=== PATIENT | female | born 2000 | race Caucasian/White ===

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

== ENCOUNTER 2020-01-09 16:18 | Emergency (ER) | payer OTHER ==
[2020-01-09 16:47] VITALS: BP 127/82; PULSE 107; RESP 18; TEMP 98.3
[2020-01-09 17:45] LABS: Basophils % (A) 1 %; Eosinophils # (A) 0.1 k/uL (0-0.7); Eosinophils % (A) 2 %; HCT 41.6 % (34.0-46.0); HGB 13.7 gm/dL (11.4-16.0); Lymphocytes # (A) 1.1 k/uL (1.0-4.8); Lymphocytes % (A) 16 %; MCH 29.8 pg (25.0-35.0); MCV 90.3 fL (80.0-100.0); Mean Platelet Volume 8.6; Monocytes # (A) 0.3 k/uL (0-1.0); Monocytes % (A) 4 %; Neutrophils # (A) 5.2 k/uL (1.3-7.7); Neutrophils % (A) 76 %; Platelet Count 198 k/uL (150-450); RBC 4.61 m/uL (3.80-5.40); RDW 12.5 % (11.5-15.5); WBC 6.8 k/uL (4.0-11.0)
[2020-01-09 17:53] LABS: Amorphous Sediment,Urine Rare /hpf; Appearance,Urine Clear (Clear); Bacteria,Urine Occasional /hpf; Bilirubin,Urine Negative (Negative); Blood,Urine Moderate (Negative); Color,Urine Light Yellow; Glucose,Urine (UA) Negative (Negative); Ketones,Urine Negative (Negative); Leukocyte Esterase,Urine Negative (Negative); Mucus,Urine Occasional /hpf; Nitrite,Urine Negative (Negative); PH, Urine 6.5 (5.0-8.0); Protein,Urine Negative (Negative); RBC,Urine 6 /hpf (0-5); Specific Gravity,Urine 1.008 (1.001-1.035); Squamous Epithelial Cell,Urine 1 /hpf (0-4); Urobilinogen,Urine <2.0 mg/dL (<2.0); WBC,Urine 1 /hpf (0-5)
[2020-01-09 17:56] LABS: African American GFR (CKD) >90 (>60 ml/min/1.73 sqM); Anion Gap 8 mmol/L; Blood Urea Nitrogen 11 mg/dL (7-17); Calcium 9.5 mg/dL (8.4-10.2); Carbon Dioxide 25 mmol/L (22-30); Chloride 105 mmol/L (98-107); Glucose 123 mg/dL (74-99); Non-African American GFR(CKD) >90 (>60 ml/min/1.73 sqM); Potassium 3.7 mmol/L (3.5-5.1); Sodium 138 mmol/L (137-145)
[2020-01-09 18:13] LABS: HCG,Quantitative Serum 333.6 mIU/mL
--- NOTE | 2020-01-09 18:36 | US ---
EXAMINATION TYPE: Transabdominal DATE OF EXAM: 01/09/2020 6:12 PM COMPARISON: NONE CLINICAL HISTORY: Vaginal bleeding and . EXAM PERFORMED: Transvaginal (TV) and Transabdominal (TA) EXAM MEASUREMENTS: GESTATIONAL AGE / DATING Dates by LMP: (5 weeks/3 days) EDC: 09/07/2020 Dates by Current Scan for: No IUP seen at this time MATERNAL ANATOMY Uterus: 7.8 x 3.7 x 4.1 cm Right Ovary: 2.0 x 1.9 x 1.7 cm Left Ovary: 3.1 x 1.7 x 1.5 cm Presence of free fluid: Small amount of free fluid visualized in the cul de sac Presence of corpus luteal cyst: Yes, left ovary measuring 1.6 x 1.0 x 0.9 cm GESTATION / SURVEY IUP: No IUP seen at this time Date of LMP: 12/02/2019 Beta HcG (if available): 333 No IUP visualized at this time. IMPRESSION: Uterus is empty. No evidence of a gestational sac. No sign of ectopic .
--- NOTE | 2020-01-09 18:55 | ED ---
Female Urogenital HPI - General Chief complaint: Vaginal Bleeding Stated complaint: possible miscarriage Time Seen by Provider: 01/09/20 17:10 Source: patient, RN notes reviewed Mode of arrival: ambulatory Limitations: no limitations - History of Present Illness Initial comments: This a 19-year-old female presents emergency Department chief complaint of vaginal bleeding early . Patient is A0 proximal to 8 weeks . Patient states that she is trying to establish with [employer]. Patient denies any fevers or chills she has mild abdominal cramping. Patient denies any constipation or diarrhea. Patient states that she's had 3 positive is at home. Patient offers no complaints. Last Menstrual Period: 12/02/19 - Related Data Previous Rx's Medication Instructions Recorded Azithromycin [Zithromax Z-pack] 0 mg PO DIRECTED #6 tab 11/03/18 Meclizine [Antivert] 25 mg PO TID #15 tab 11/05/18 Naproxen [Naprosyn] 500 mg PO Q12HR PRN #30 tab 11/05/18 Ondansetron Odt [Zofran ODT] 4 mg PO Q8HR PRN #30 tab 11/05/18 Allergies Allergy/AdvReac Type Severity Reaction Status Date / Time Penicillins Allergy Unknown Verified 01/09/20 16:45 Childhood Review of Systems ROS Statement: Those systems with pertinent positive or pertinent negative responses have been documented in the HPI. ROS Other: All systems not noted in ROS Statement are negative. Past Medical History Past Medical History: No Reported History History of Any Multi-Drug Resistant Organisms: None Reported Past Surgical History: No Surgical Hx Reported Past Psychological History: No Psychological Hx Reported Smoking Status: Never smoker Past Alcohol Use History: Rare Past Drug Use History: Marijuana General Exam Limitations: no limitations General appearance: alert, in no apparent distress Head exam: Present: atraumatic, normocephalic, normal inspection Neck exam: Present: normal inspection, full ROM. Absent: tenderness, meningismus, lymphadenopathy Respiratory exam: Present: normal lung sounds bilaterally. Absent: respiratory distress, wheezes, rales, rhonchi, stridor Cardiovascular Exam: Present: regular rate, normal rhythm, normal heart sounds. Absent: systolic murmur, diastolic murmur, rubs, gallop, clicks GI/Abdominal exam: Present: soft, tenderness (Minimal suprapubic), normal bowel sounds. Absent: distended, guarding, rebound, rigid Back exam: Absent: CVA tenderness (R), CVA tenderness (L) Course Vital Signs 01/09/20 16:42 Temperature 98.3 F Pulse Rate 107 H Respiratory 18 Rate Blood Pressure 127/82 O2 Sat by Pulse 100 Oximetry Medical Decision Making - Medical Decision Making Ultrasound, labs were reviewed. Patient has no evidence of urinary tract infection. Patient's hCG is 333. Patient we given repeat hCG for concern for threatened miscarriage all son does not reveal any IUP or evidence of ectopic . - Lab Data Result diagrams: 01/09/20 17:31 01/09/20 17:31 Lab Results 01/09/20 01/09/20 01/09/20 Range/Units 17:31 17:31 17:31 WBC 6.8 (4.0-11.0) k/uL RBC 4.61 (3.80-5.40) m/uL Hgb 13.7 (11.4-16.0) gm/dL Hct 41.6 (34.0-46.0) % MCV 90.3 (80.0-100.0) fL MCH 29.8 (25.0-35.0) pg MCHC 33.0 (31.0-37.0) g/dL RDW 12.5 (11.5-15.5) % Plt Count 198 (150-450) k/uL Neutrophils % 76 % Lymphocytes % 16 % Monocytes % 4 % Eosinophils % 2 % Basophils % 1 % Neutrophils # 5.2 (1.3-7.7) k/uL Lymphocytes # 1.1 (1.0-4.8) k/uL Monocytes # 0.3 (0-1.0) k/uL Eosinophils # 0.1 (0-0.7) k/uL Basophils # 0.0 (0-0.2) k/uL Sodium 138 (137-145) mmol/L Potassium 3.7 (3.5-5.1) mmol/L Chloride 105 (98-107) mmol/L Carbon Dioxide 25 (22-30) mmol/L Anion Gap 8 mmol/L BUN 11 (7-17) mg/dL Creatinine 0.82 (0.52-1.04) mg/dL Est GFR (CKD-EPI)AfAm >90 (>60 ml/min/1.73 sqM) Est GFR (CKD-EPI)NonAf >90 (>60 ml/min/1.73 sqM) Glucose 123 H (74-99) mg/dL Calcium 9.5 (8.4-10.2) mg/dL HCG, Quant 333.6 mIU/mL Urine Color Urine Appearance (Clear) Urine pH (5.0-8.0) Ur Specific Avenue (1.001-1.035) Urine Protein (Negative) Urine Glucose (UA) (Negative) Urine Ketones (Negative) Urine Blood (Negative) Urine Nitrite (Negative) Urine Bilirubin (Negative) Urine Urobilinogen (<2.0) mg/dL Ur Leukocyte Esterase (Negative) Urine RBC (0-5) /hpf Urine WBC (0-5) /hpf Ur Squamous Epith Cells (0-4) /hpf Amorphous Sediment (None) /hpf Urine Bacteria (None) /hpf Urine Mucus (None) /hpf Blood Type O Positive Blood Type Recheck No Previous Record Bld Type Recheck Status [facility] ONLY 01/09/20 Range/Units 17:31 WBC (4.0-11.0) k/uL RBC (3.80-5.40) m/uL Hgb (11.4-16.0) gm/dL Hct (34.0-46.0) % MCV (80.0-100.0) fL MCH (25.0-35.0) pg MCHC (31.0-37.0) g/dL RDW (11.5-15.5) % Plt Count (150-450) k/uL Neutrophils % % Lymphocytes % % Monocytes % % Eosinophils % % Basophils % % Neutrophils # (1.3-7.7) k/uL Lymphocytes # (1.0-4.8) k/uL Monocytes # (0-1.0) k/uL Eosinophils # (0-0.7) k/uL Basophils # (0-0.2) k/uL Sodium (137-145) mmol/L Potassium (3.5-5.1) mmol/L Chloride (98-107) mmol/L Carbon Dioxide (22-30) mmol/L Anion Gap mmol/L BUN (7-17) mg/dL Creatinine (0.52-1.04) mg/dL Est GFR (CKD-EPI)AfAm (>60 ml/min/1.73 sqM) Est GFR (CKD-EPI)NonAf (>60 ml/min/1.73 sqM) Glucose (74-99) mg/dL Calcium (8.4-10.2) mg/dL HCG, Quant mIU/mL Urine Color Light Yellow Urine Appearance Clear (Clear) Urine pH 6.5 (5.0-8.0) Ur Specific Avenue 1.008 (1.001-1.035) Urine Protein Negative (Negative) Urine Glucose (UA) Negative (Negative) Urine Ketones Negative (Negative) Urine Blood Moderate H (Negative) Urine Nitrite Negative (Negative) Urine Bilirubin Negative (Negative) Urine Urobilinogen <2.0 (<2.0) mg/dL Ur Leukocyte Esterase Negative (Negative) Urine RBC 6 H (0-5) /hpf Urine WBC 1 (0-5) /hpf Ur Squamous Epith Cells 1 (0-4) /hpf Amorphous Sediment Rare H (None) /hpf Urine Bacteria Occasional H (None) /hpf Urine Mucus Occasional H (None) /hpf Blood Type Blood Type Recheck Bld Type Recheck Status Disposition Clinical Impression: Threatened miscarriage Disposition: HOME SELF-CARE Condition: Stable Instructions (If sedation given, give patient instructions): Miscarriage (ED) Additional Instructions: Please return to the Emergency Department if symptoms worsen or any other concerns. Is patient prescribed a controlled substance at d/c from ED?: No Referrals: None,Stated [Primary Care Provider] - 1-2 days Time of Disposition: 18:54
== END 2020-01-09 19:03 | disposition home or self-care (01) ==
LOC: EC 16:18
DX: O20.0 Threatened abortion (principal); Z88.0 Allergy status to penicillin; Z3A.01 Less than 8 weeks gestation of pregnancy
CPT/HCPCS: 36415; 76801; 76817; 80048; 81001; 84702; 85025; 86900; 86901; 99284

== ENCOUNTER → 2020-01-12 | Outpatient (CLI) | payer OTHER | END | disposition home or self-care (01) | LOC: LABWHC1 13:08 | PROVIDERS: ATTEND Physician Assistant | DX: O20.0 Threatened abortion (principal) | CPT/HCPCS: 36415; 84702 ==

== ENCOUNTER 2020-09-06 18:00 | Emergency (ER) | payer OTHER ==
[2020-09-06] MEDS ORDERED: SODIUM CHLORIDE 0.9% 1,000 ML IV ONE (19:14)
--- NOTE | 2020-09-06 19:33 | ED ---
General Adult HPI - General Chief complaint: Vaginal Bleeding Stated complaint: 9wks preg, bleeding/cramping Time Seen by Provider: 09/06/20 18:58 Source: patient Mode of arrival: ambulatory Limitations: no limitations - History of Present Illness Initial comments: 19-year-old female patient who is 9 weeks , last menstrual period 06/28/2020, with miscarriage in December 2019, presents to the emergency department for evaluation of vaginal bleeding. States that she has been having spotting for the last week. States that today the bleeding became heavier. She now has to wear a pad. Denies any passage of blood clots. Denies any abdominal pain or back pain. Has established with OBGYN initially in [facility], initial ultrasound was unremarkable. She will now be seeing Dr. Galvan, but has not yet had an appointment. Patient denies any recent rash, fever, chills, cough, shortness of breath, chest pain, nausea, vomiting, diarrhea, constipation, back pain, numbness, tingling, dizziness, weakness, hematuria, dysuria, urinary urgency, urinary frequency, headache, visual changes, or any other complaints. - Related Data Previous Rx's Medication Instructions Recorded Azithromycin [Zithromax Z-pack (6 0 mg PO DIRECTED #6 tab 11/03/18 tabs)] Meclizine [Antivert] 25 mg PO TID #15 tab 11/05/18 Naproxen [Naprosyn] 500 mg PO Q12HR PRN #30 tab 11/05/18 Ondansetron Odt [Zofran ODT] 4 mg PO Q8HR PRN #30 tab 11/05/18 Allergies Allergy/AdvReac Type Severity Reaction Status Date / Time Penicillins Allergy Unknown Verified 09/06/20 18:01 Childhood Review of Systems ROS Statement: Those systems with pertinent positive or pertinent negative responses have been documented in the HPI. ROS Other: All systems not noted in ROS Statement are negative. Past Medical History Past Medical History: No Reported History History of Any Multi-Drug Resistant Organisms: None Reported Past Surgical History: No Surgical Hx Reported Past Psychological History: No Psychological Hx Reported Smoking Status: Never smoker Past Alcohol Use History: None Reported Past Drug Use History: None Reported, Marijuana General Exam Limitations: no limitations General appearance: alert, in no apparent distress, other (Physical well-devel oped, well-nourished adult female patient in no acute distress. Vital signs upon presentation are temperature 98.1F, pulse 123, respirations 18, blood pressure 131/75, pulse ox 100% on room air.) Eye exam: Present: normal appearance, PERRL, EOMI. Absent: scleral icterus, conjunctival injection, periorbital swelling ENT exam: Present: normal exam, normal oropharynx, mucous membranes moist Respiratory exam: Present: normal lung sounds bilaterally. Absent: respiratory distress, wheezes, rales, rhonchi, stridor Cardiovascular Exam: Present: regular rate, normal rhythm, normal heart sounds. Absent: systolic murmur, diastolic murmur, rubs, gallop, clicks GI/Abdominal exam: Present: soft, normal bowel sounds. Absent: distended, tenderness, guarding, rebound, rigid Neurological exam: Present: alert, oriented X3, CN II-XII intact Psychiatric exam: Present: normal affect, normal mood Skin exam: Present: warm, dry, intact, normal color. Absent: rash Course Vital Signs 09/06/20 09/06/20 09/06/20 18:02 20:10 21:35 Temperature 98.1 F 99.1 F Pulse Rate 123 H 119 H 75 Respiratory 18 18 20 Rate Blood Pressure 131/75 129/75 110/67 O2 Sat by Pulse 100 100 99 Oximetry Medical Decision Making - Medical Decision Making 19-year-old female patient who is 9 weeks , last menstrual period 06/28/2020, presents to the emergency department today for evaluation of vaginal bleeding. Labs reviewed and did reveal hCG level is 17,999. Ultrasound was obtained and showed a crown-rump length measuring 6 weeks 1 day with no heart tones detected. This could be demise. Patient will be discharged with labs obtained obtain repeat hCG in 2 days. She is instructed to follow-up with Dr. Galvan for further evaluation repeat ultrasound to confirm viable . I did discuss findings and results with the patient. She is instructed to call Dr. Galvan's office in the morning. Return parameters were discussed in detail. She verbalizes understanding and agrees with this plan. Case discussed with my attending Dr. Hammond. - Lab Data Result diagrams: 09/06/20 19:46 09/06/20 19:46 Lab Results 09/06/20 09/06/20 09/06/20 Range/Units 19:46 19:46 19:46 WBC 8.1 (4.0-11.0) k/uL RBC 4.81 (3.80-5.40) m/uL Hgb 15.0 (11.4-16.0) gm/dL Hct 43.3 (34.0-46.0) % MCV 89.9 (80.0-100.0) fL MCH 31.1 (25.0-35.0) pg MCHC 34.6 (31.0-37.0) g/dL RDW 12.2 (11.5-15.5) % Plt Count 199 (150-450) k/uL MPV 8.2 Neutrophils % 72 % Lymphocytes % 20 % Monocytes % 5 % Eosinophils % 2 % Basophils % 0 % Neutrophils # 5.8 (1.3-7.7) k/uL Lymphocytes # 1.6 (1.0-4.8) k/uL Monocytes # 0.4 (0-1.0) k/uL Eosinophils # 0.2 (0-0.7) k/uL Basophils # 0.0 (0-0.2) k/uL Sodium 142 (137-145) mmol/L Potassium 3.4 L (3.5-5.1) mmol/L Chloride 103 (98-107) mmol/L Carbon Dioxide 27 (22-30) mmol/L Anion Gap 12 mmol/L BUN 12 (7-17) mg/dL Creatinine 0.78 (0.52-1.04) mg/dL Est GFR (CKD-EPI)AfAm >90 (>60 ml/min/1.73 sqM) Est GFR (CKD-EPI)NonAf >90 (>60 ml/min/1.73 sqM) Glucose 89 (74-99) mg/dL Calcium 9.6 (8.4-10.2) mg/dL Total Bilirubin 1.4 H (0.2-1.3) mg/dL AST 29 (14-36) U/L ALT 19 (4-34) U/L Alkaline Phosphatase 70 (38-126) U/L Total Protein 8.7 H (6.3-8.2) g/dL Albumin 5.1 H (3.5-5.0) g/dL HCG, Quant 73946.5 mIU/mL Urine Color Light Yellow Urine Appearance Clear (Clear) Urine pH 7.0 (5.0-8.0) Ur Specific [place] 1.010 (1.001-1.035) Urine Protein Negative (Negative) Urine Glucose (UA) Negative (Negative) Urine Ketones Negative (Negative) Urine Blood Moderate H (Negative) Urine Nitrite Negative (Negative) Urine Bilirubin Negative (Negative) Urine Urobilinogen <2.0 (<2.0) mg/dL Ur Leukocyte Esterase Small H (Negative) Urine RBC 3 (0-5) /hpf Urine WBC 2 (0-5) /hpf Ur Squamous Epith Cells 1 (0-4) /hpf Urine Mucus Rare H (None) /hpf Blood Type Blood Type Recheck Bld Type Recheck Status 09/06/20 Range/Units 19:46 WBC (4.0-11.0) k/uL RBC (3.80-5.40) m/uL Hgb (11.4-16.0) gm/dL Hct (34.0-46.0) % MCV (80.0-100.0) fL MCH (25.0-35.0) pg MCHC (31.0-37.0) g/dL RDW (11.5-15.5) % Plt Count (150-450) k/uL MPV Neutrophils % % Lymphocytes % % Monocytes % % Eosinophils % % Basophils % % Neutrophils # (1.3-7.7) k/uL Lymphocytes # (1.0-4.8) k/uL Monocytes # (0-1.0) k/uL Eosinophils # (0-0.7) k/uL Basophils # (0-0.2) k/uL Sodium (137-145) mmol/L Potassium (3.5-5.1) mmol/L Chloride (98-107) mmol/L Carbon Dioxide (22-30) mmol/L Anion Gap mmol/L BUN (7-17) mg/dL Creatinine (0.52-1.04) mg/dL Est GFR (CKD-EPI)AfAm (>60 ml/min/1.73 sqM) Est GFR (CKD-EPI)NonAf (>60 ml/min/1.73 sqM) Glucose (74-99) mg/dL Calcium (8.4-10.2) mg/dL Total Bilirubin (0.2-1.3) mg/dL AST (14-36) U/L ALT (4-34) U/L Alkaline Phosphatase (38-126) U/L Total Protein (6.3-8.2) g/dL Albumin (3.5-5.0) g/dL HCG, Quant mIU/mL Urine Color Urine Appearance (Clear) Urine pH (5.0-8.0) Ur Specific Jefferson (1.001-1.035) Urine Protein (Negative) Urine Glucose (UA) (Negative) Urine Ketones (Negative) Urine Blood (Negative) Urine Nitrite (Negative) Urine Bilirubin (Negative) Urine Urobilinogen (<2.0) mg/dL Ur Leukocyte Esterase (Negative) Urine RBC (0-5) /hpf Urine WBC (0-5) /hpf Ur Squamous Epith Cells (0-4) /hpf Urine Mucus (None) /hpf Blood Type O Positive Blood Type Recheck O Pos Bld Type Recheck Status No - Radiology Data Radiology results: report reviewed, image reviewed Ultrasound of the fetus was obtained. Report reviewed in its entirety. Impression by Dr. Bui shows small intrauterine fetus. Follow-up recommended in 7-10 days to confirm heartbeat. demise as possible. No adnexal mass. Disposition Clinical Impression: Threatened miscarriage Disposition: HOME SELF-CARE Condition: Good Instructions (If sedation given, give patient instructions): Threatened Miscarriage (ED) Additional Instructions: Pelvic rest until follow up with OBGYN. Have repeat HCG level draw in 2 days. Return for any new, worsening, or concerning symptoms. Is patient prescribed a controlled substance at d/c from ED?: No Referrals: None,Stated [Primary Care Provider] - 1-2 days Time of Disposition: 22:49
[2020-09-06 21:37] LABS: Appearance,Urine Clear (Clear); Bilirubin,Urine Negative (Negative); Blood,Urine Moderate (Negative); Color,Urine Light Yellow; Glucose,Urine (UA) Negative (Negative); Ketones,Urine Negative (Negative); Leukocyte Esterase,Urine Small (Negative); Mucus,Urine Rare /hpf; Nitrite,Urine Negative (Negative); Protein,Urine Negative (Negative); RBC,Urine 3 /hpf (0-5); Squamous Epithelial Cell,Urine 1 /hpf (0-4); Urobilinogen,Urine <2.0 mg/dL (<2.0); WBC,Urine 2 /hpf (0-5)
[2020-09-06 21:39] LABS: Basophils % (A) 0 %; Eosinophils # (A) 0.2 k/uL (0-0.7); Eosinophils % (A) 2 %; HCT 43.3 % (34.0-46.0); Lymphocytes # (A) 1.6 k/uL (1.0-4.8); Lymphocytes % (A) 20 %; MCH 31.1 pg (25.0-35.0); MCHC 34.6 g/dL (31.0-37.0); MCV 89.9 fL (80.0-100.0); Mean Platelet Volume 8.2; Monocytes # (A) 0.4 k/uL (0-1.0); Monocytes % (A) 5 %; Neutrophils # (A) 5.8 k/uL (1.3-7.7); Neutrophils % (A) 72 %; Platelet Count 199 k/uL (150-450); RBC 4.81 m/uL (3.80-5.40); RDW 12.2 % (11.5-15.5); WBC 8.1 k/uL (4.0-11.0)
[2020-09-06 21:50] LABS: ALT 19 U/L (4-34); AST 29 U/L (14-36); African American GFR (CKD) >90 (>60 ml/min/1.73 sqM); Albumin 5.1 g/dL (3.5-5.0); Alkaline Phosphatase 70 U/L (38-126); Anion Gap 12 mmol/L; Blood Urea Nitrogen 12 mg/dL (7-17); Calcium 9.6 mg/dL (8.4-10.2); Carbon Dioxide 27 mmol/L (22-30); Chloride 103 mmol/L (98-107); Glucose 89 mg/dL (74-99); Non-African American GFR(CKD) >90 (>60 ml/min/1.73 sqM); Potassium 3.4 mmol/L (3.5-5.1); Sodium 142 mmol/L (137-145); Total Bilirubin 1.4 mg/dL (0.2-1.3); Total Protein 8.7 g/dL (6.3-8.2)
--- NOTE | 2020-09-06 22:09 | US ---
EXAMINATION TYPE: Transabdominal DATE OF EXAM: 09/06/2020 9:35 PM COMPARISON: US 2019, this is first US for this . CLINICAL HISTORY: pain. Pain per order. Spotting. Hx miscarriage. . EXAM PERFORMED: Transvaginal (TV) and Transabdominal (TA) EXAM MEASUREMENTS: GESTATIONAL AGE / DATING Physician Established: (9 weeks/1 day) EDC: 04/10/2021 Dates by LMP: (9 weeks/6 days) EDC: 04/05/2021 Dates by First Scan: This is first scan at this facility. Dates by Current Scan for: (6 weeks/1 day) EDC: 05/01/2021. No heart tones detected at this time. MATERNAL ANATOMY Uterus: 8.0 x 6.3 x 5.7 cm. Anechoic area seen in cervix: 2.9 x 0.2 x 0.1 cm. Right Ovary: 3.5 x 2.1 x 1.9 cm. Left Ovary: 3.2 x 1.4 x 1.4 cm. Post CDS / Adnexa: Anechoic area seen adjacent to or possibly connected to right ovary: 1.1 x 1.1 x 1 .2 cm. Presence of free fluid: none seen. Presence of corpus luteal cyst: Area of mixed echogenicity and peripheral vascularity within the left ovary: 2.0 x 1.4 x 1.4 cm. Presence of subchorionic bleed: Possible- Heterogeneous, hypoechoic area seen adjacent to the gestati onal sac: 2.2 x 0.8 x 1.1 cm. GESTATION / SURVEY CRL: 0.40 cm. (6 weeks/1 day) MSD: 1.77 cm. (6 weeks/1 day) Yolk Sac (normal less than 6mm): 2.5 mm. Heart Rate: No heart tones detected at this time. IUP: CRL seen without heart tones at this time. Date of LMP: 06/28/2020 Beta HcG (if available): not available IMPRESSION: Small intrauterine fetus. Follow-up recommended in 7-10 days to confirm a heartbeat. demise is possible. No adnexal mass.
[2020-09-06 22:49] LABS: HCG,Quantitative Serum 17999.5 mIU/mL
[2020-09-06 23:11] VITALS: BP 113/75; PULSE 66; RESP 18; TEMP 98.8
== END 2020-09-06 23:11 | disposition home or self-care (01) ==
LOC: EC 18:00
DX: O20.0 Threatened abortion (principal); O99.321 Drug use complicating pregnancy, first trimester; F12.90 Cannabis use, unspecified, uncomplicated; Z3A.09 9 weeks gestation of pregnancy; Z88.0 Allergy status to penicillin
CPT/HCPCS: 36415; 76801; 76817; 80053; 81001; 84702; 85025; 86900; 86901; 96360; 96361; 99284

== ENCOUNTER → 2020-09-10 | Outpatient (CLI) | payer OTHER ==
--- NOTE | 2020-09-10 15:38 | US ---
EXAMINATION TYPE: Transabdominal DATE OF EXAM: 09/10/2020 3:10 PM COMPARISON: NONE CLINICAL HISTORY: Z36 CONFIRM DATES. miscarriage EXAM PERFORMED: Transvaginal (TV) and Transabdominal (TA) EXAM MEASUREMENTS: GESTATIONAL AGE / DATING Physician Established: Not yet established Dates by LMP: (10 weeks/4 days) EDC: 04/04/21 Dates by First Scan: abnormal first scan Dates by Current Scan for: 6wks/1day EDC: 05/05/21 - no heart tones MATERNAL ANATOMY Uterus: 10.7 x 4.5 x 6.0cm Right Ovary: 2.9 x 1.2 x 1.2cm Left Ovary: 3.0 x 1.4 x 2.3cm Post CDS / Adnexa: wnl Presence of free fluid: no Presence of corpus luteal cyst: yes, hypoechoic area left ovary = 1.8 x 1.1 x 1.7cm GESTATION / SURVEY CRL: 0.4cm (6 weeks/1 days) MSD: 1.9cm (6 weeks/6 days) Yolk Sac (normal less than 6mm): not seen Heart Rate: not detected IUP: Demise Date of LMP: 06/28/20 Beta HcG (if available): Not available at this time No heart tones at this time. Gestational sac located within LASHELL/cervix. right paraovarian cysti c area = 1.1 x 0.9 x 1.6cm. corpus luteum left ovary IMPRESSION: Findings compatible with demise and spontaneous in progress. Correlate clinically.
== END | disposition home or self-care (01) ==
LOC: RADUSWWP 14:38
PROVIDERS: ATTEND Obstetrics & Gynecology
DX: Z36.89 Encounter for other specified antenatal screening (principal); O03.9 Complete or unspecified spontaneous abortion without complication; Z3A.01 Less than 8 weeks gestation of pregnancy
CPT/HCPCS: 76801; 76817

== ENCOUNTER → 2020-09-15 | Outpatient (CLI) | payer OTHER ==
--- NOTE | 2020-09-16 07:49 | US ---
EXAMINATION TYPE: Transabdominal DATE OF EXAM: 09/15/2020 4:37 PM COMPARISON: 09/10/2020 CLINICAL HISTORY: Incomplete . Bleeding. Follow up. EXAM PERFORMED: Transvaginal (TV) and Transabdominal (TA) EXAM MEASUREMENTS: GESTATIONAL AGE / DATING Dates by LMP: (11 weeks/2 days) EDC: Dates by Current Scan for: Unable to date by today's study MATERNAL ANATOMY Uterus: 7.7 x 4.6 x 3.3 cm Right Ovary: 3.3 x 1.6 x 1.2 cm. Cystic lesion = 1.3 x 1.3 x 1.0 cm Left Ovary: 2.8 x 1.8 x 1.6 cm. There is a corpus luteal cyst measuring 1.4 cm. Post CDS / Adnexa: no free fluid. Peristalsing fluid filled loops of bowel. Presence of free fluid: no Presence of corpus luteal cyst: left ovary = 1.4 x 1.1 x 1.0 cm GESTATION / SURVEY IUP: GS seen in LASHELL/Cervix region Date of LMP: 06/28/2020, GS visualized with internal debris seen extending in LASHELL to Cervical region. No definitive YS or CRL seen on today's ultrasound. IMPRESSION: The gestational sac is seen in the lower uterine segment/cervical region. No pole is seen. This is suggestive of a spontaneous in progress.
== END | disposition home or self-care (01) ==
LOC: RADUSWWP 15:38
PROVIDERS: ATTEND Obstetrics & Gynecology
DX: O03.4 Incomplete spontaneous abortion without complication (principal); Z3A.00 Weeks of gestation of pregnancy not specified
CPT/HCPCS: 36415; 76801; 76817; 84702

== ENCOUNTER 2020-09-17 06:25 | Day surgery (SDC) | payer OTHER ==
--- NOTE | 2020-09-16 09:25 | P.HPOB ---
History of Present Illness H&P Date: 09/16/20 Chief Complaint: Incomplete This patient is a pleasant 19 female estimated gestational age 6 weeks who has had serial ultrasounds showing a non-viable and persistent retained tissue. She is now requesting suction D&C for treatment. Review of Systems Genitourinary: Reports abnormal vaginal bleeding, Reports Past Medical History Past Medical History: No Reported History History of Any Multi-Drug Resistant Organisms: None Reported Past Surgical History: No Surgical Hx Reported Past Psychological History: No Psychological Hx Reported Smoking Status: Never smoker Past Alcohol Use History: None Reported Past Drug Use History: None Reported, Marijuana Medications and Allergies Home Medications Medication Instructions Recorded Confirmed Type Azithromycin [Zithromax Z-pack (6 0 mg PO DIRECTED #6 tab 11/03/18 Rx tabs)] Meclizine [Antivert] 25 mg PO TID #15 tab 11/05/18 Rx Naproxen [Naprosyn] 500 mg PO Q12HR PRN #30 tab 11/05/18 Rx Ondansetron Odt [Zofran ODT] 4 mg PO Q8HR PRN #30 tab 11/05/18 Rx Allergies Allergy/AdvReac Type Severity Reaction Status Date / Time Penicillins Allergy Unknown Verified 09/06/20 18:01 Childhood Exam - OBG Physical Exam Abdomen: bowel sounds normal, no diffuse tenderness, no bruit present, no g uarding noted, no hepatomegaly, no splenomegaly, no mass Vulva: both: normal Vagina: discharge Cervix: no lesion (Dark red blood), no discharge Uterus: enlarged (6 wks) Results BT is O positive Assessment and Plan Assessment: This is a pleasant 19 yr female estimated gestational age 6 weeks with persistent retained tissue requesting suction D&C for treatment. I have discussed this surgery and risks: infection, bleeding, possible uterine perforation. All of her questions were answered and a written consent obtained. (1) Incomplete Status: Acute Code(s): O03.4 - INCOMPLETE SPONTANEOUS WITHOUT COMPLICATION SNOMED Code(s): 577659434
[2020-09-16 11:25] VITALS: BMI 19.5
[~2020-09-17 06:25] MED LIST: DEXAMETHASONE SOD PHOSPHATE 4 MG/ML 1 ML VIAL IV ONE; MIDAZOLAM 2 MG/2 ML VIAL IV PRN; Pre Op ABX Message 1 EACH MISC MISCELLANE ONE; SCOPOLAMINE 1.5MG/72HR PATCH TRANSDERM ONE
[2020-09-17] MEDS: LACTATED RINGERS 1,000 ML IV SCH ×2 (06:59→07:27)
[2020-09-17] MEDS ORDERED: HYDROmorphone 0.5 MG/0.5 ML SYRINGE IVP PRN (07:00)
[2020-09-17] MEDS: ONDANSETRON 4 MG/2 ML VIAL IVP ONE ×2 (07:13→08:21)
[2020-09-17] MEDS ORDERED: MIDAZOLAM 2 MG/2 ML VIAL ONE (07:54)
[2020-09-17] MEDS ORDERED: KETOROLAC 15 MG/ML 1 ML VIAL ONE (07:54)
[2020-09-17] MEDS ORDERED: fentaNYL (PF) 50 MCG/ML 2 ML AMP ONE (07:54)
[2020-09-17] MEDS ORDERED: PROPOFOL 10 MG/ML 20 ML VIAL IV ONE (07:54)
[2020-09-17] MEDS ORDERED: LIDOCAINE 1% INJ 10MG/ML (20 ML MDV) ONE (07:54)
--- NOTE | 2020-09-17 07:58 | P.OP ---
Date of Procedure: 09/17/20 Preoperative Diagnosis: Incomplete 6 weeks Postoperative Diagnosis: Same Procedure(s) Performed: Suction D&C Anesthesia: other (LMA) Surgeon: Indra Galvan Estimated Blood Loss (ml): 50 Urine output (ml): 20 Pathology: other (Products of conception) Condition: stable Disposition: PACU Indications for Procedure: Please see dictated H&P for intimate details of this patient's admission. Brief summary this is a pleasant 19-year-old 2 para 0 female gestational age 6 weeks with an incomplete who requests suction D&C for treatment. Patient understands this procedure and risks and risks of infection, bleeding, possible uterine perforation. All the patient's questions are answered and a written consent is obtained. Operative Findings: This patient had a generous amount of tissue that looked degenerated consistent with products of conception Description of Procedure: This patient is taken to the operating room where she is laid in the supine position. She subsequent undergoes general anesthesia without incident. With an adequate level of anesthesia she's placed in the dorsal lithotomy position. She has a vaginal perineal prep and drape. Examination under anesthesia shows a mid position uterus. The bladder is drained for 20 mL of clear urine. Weighted speculum placed in the posterior vagina. Anterior lip of cervix and grasped with an Allis clamp. Gentle dilation is then done of the cervix to allow an 8 curved suction curette easily into the uterine cavity. Suction is applied and a large amount of tissue is removed. Multiple passes are made to no further tissue was noted. A gentle but thorough 4 quadrant curettage is done as well and again no further tissue was noted. With this done the bleeding subsides. The weighted speculum and Allis clamp are removed. All counts are correct 3. There are no complications. Patient is taken to the recovery room in satisfactory condition.
[2020-09-17 08:21] VITALS: TEMP 97
[2020-09-17 08:25] VITALS: RESP 16
[2020-09-17] MEDS ORDERED: LACTATED RINGERS 1,000 ML IV ONE (08:50)
[2020-09-17 09:41] VITALS: BP 107/70; PULSE 71
== END 2020-09-17 10:18 | disposition home or self-care (01) ==
LOC: OR 06:25
PROVIDERS: ATTEND Obstetrics & Gynecology
DX: O03.4 Incomplete spontaneous abortion without complication (principal); Z3A.01 Less than 8 weeks gestation of pregnancy; Z79.899 Other long term (current) drug therapy; Z88.0 Allergy status to penicillin
CPT/HCPCS: 59812; 88305; J2250; J1100; J2405; J2001; J3010; J1885; J2704; J1170

== ENCOUNTER 2021-02-02 11:53 | Emergency (ER) | payer OTHER ==
[2021-02-02 12:06] VITALS: RESP 16; TEMP 98.8
[2021-02-02 12:58] LABS: Basophils % (A) 0 %; Eosinophils # (A) 0.1 k/uL (0-0.7); Eosinophils % (A) 1 %; HCT 42.2 % (34.0-46.0); HGB 13.9 gm/dL (11.4-16.0); Lymphocytes # (A) 1.2 k/uL (1.0-4.8); Lymphocytes % (A) 18 %; MCH 30.2 pg (25.0-35.0); MCV 91.6 fL (80.0-100.0); Mean Platelet Volume 8.2; Monocytes # (A) 0.3 k/uL (0-1.0); Monocytes % (A) 4 %; Neutrophils % (A) 75 %; Platelet Count 206 k/uL (150-450); RBC 4.61 m/uL (3.80-5.40); RDW 12.4 % (11.5-15.5); WBC 6.6 k/uL (3.8-10.6)
[2021-02-02 13:10] LABS: ALT 16 U/L (4-34); AST 26 U/L (14-36); African American GFR (CKD) >90 (>60 ml/min/1.73 sqM); Alkaline Phosphatase 42 U/L (38-126); Anion Gap 7 mmol/L; Blood Urea Nitrogen 9 mg/dL (7-17); Calcium 9.3 mg/dL (8.4-10.2); Carbon Dioxide 27 mmol/L (22-30); Chloride 106 mmol/L (98-107); Glucose 104 mg/dL (74-99); Non-African American GFR(CKD) >90 (>60 ml/min/1.73 sqM); Potassium 3.7 mmol/L (3.5-5.1); Sodium 140 mmol/L (137-145); Total Bilirubin 1.6 mg/dL (0.2-1.3); Total Protein 7.2 g/dL (6.3-8.2)
[2021-02-02 13:23] LABS: Appearance,Urine Clear (Clear); Bacteria,Urine Rare /hpf; Bilirubin,Urine Negative (Negative); Blood,Urine Moderate (Negative); Color,Urine Yellow; Glucose,Urine (UA) Negative (Negative); Ketones,Urine 1+ (Negative); Leukocyte Esterase,Urine Negative (Negative); Mucus,Urine Rare /hpf; Nitrite,Urine Negative (Negative); Protein,Urine Negative (Negative); RBC,Urine 2 /hpf (0-5); Specific Gravity,Urine 1.013 (1.001-1.035); Squamous Epithelial Cell,Urine 2 /hpf (0-4); Urobilinogen,Urine <2.0 mg/dL (<2.0); WBC,Urine 1 /hpf (0-5)
--- NOTE | 2021-02-02 13:26 | ED ---
General Adult HPI - General Chief complaint: Vaginal Bleeding Stated complaint: Urogenital Time Seen by Provider: 02/02/21 12:09 Source: patient, RN notes reviewed Mode of arrival: ambulatory Limitations: no limitations - History of Present Illness Initial comments: 20-year-old female presents to the emergency room for chief complaint of vaginal bleeding. Patient started to have vaginal bleeding 2 weeks ago. It lasted 5 days. It then resolved for a week or so but started again today. Patient called her [employer] and they sent her to the emergency room to get her hemoglobin checked. Patient had asked if it could be checked in the office but they said it would not be accurate enough so patient presented to the emergency room. Patient denies abdominal pain. Did have some lightheadedness however denying that at this time. Denies chance of .Patient has no other complaints at this time including shortness of breath, chest pain, abdominal pain, nausea or vomiting, headache, or visual changes. - Related Data Home Medications Medication Instructions Recorded Confirmed Norethindrone-E.estradiol-Iron 1 tab PO DAILY 02/02/21 02/02/21 [June Fe 24 Tablet] Allergies Allergy/AdvReac Type Severity Reaction Status Date / Time Penicillins Allergy Family Verified 02/02/21 12:39 history Review of Systems ROS Statement: Those systems with pertinent positive or pertinent negative responses have been documented in the HPI. ROS Other: All systems not noted in ROS Statement are negative. Past Medical History Past Medical History: No Reported History History of Any Multi-Drug Resistant Organisms: None Reported Past Surgical History: No Surgical Hx Reported Additional Past Surgical History / Comment(s): d/c Past Anesthesia/Blood Transfusion Reactions: No Reported Reaction Past Psychological History: No Psychological Hx Reported Smoking Status: Never smoker Past Alcohol Use History: None Reported Past Drug Use History: None Reported - Past Family History Mother Family Medical History: No Reported History General Exam Limitations: no limitations General appearance: alert, in no apparent distress Head exam: Present: atraumatic Eye exam: Present: normal appearance, PERRL, EOMI. Absent: scleral icterus, conjunctival injection ENT exam: Present: normal exam, mucous membranes moist Neck exam: Present: normal inspection, full ROM. Absent: tenderness Respiratory exam: Present: normal lung sounds bilaterally. Absent: respiratory distress, wheezes Cardiovascular Exam: Present: regular rate, normal rhythm, normal heart sounds GI/Abdominal exam: Present: soft, normal bowel sounds. Absent: distended, tenderness External exam: Present: normal external exam. Absent: erythema, swelling, lesions, lacerations, ecchymosis Speculum exam: Present: normal speculum exam, vaginal bleeding (Minimal vaginal bleeding noted). Absent: erythema, vaginal discharge, cervical discharge, foreign body Course Vital Signs 02/02/21 12:03 Temperature 98.8 F Pulse Rate 102 H Respiratory 16 Rate Blood Pressure 124/80 O2 Sat by Pulse 100 Oximetry Medical Decision Making - Medical Decision Making Vitals are stable. Physical exam reveals minimal vaginal bleeding. No abdominal tenderness. 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 Laboratory evaluation unremarkable. CBC revealed a hemoglobin of 13.9. HCG not detected. At this time patient is stable for outpatient follow-up with her [employer] Dr. Galvan.. She will return here for any worsening symptoms. - Lab Data Result diagrams: 02/02/21 12:40 02/02/21 12:41 Lab Results 02/02/21 02/02/21 02/02/21 Range/Units 12:40 12:40 12:41 WBC 6.6 (3.8-10.6) k/uL RBC 4.61 (3.80-5.40) m/uL Hgb 13.9 (11.4-16.0) gm/dL Hct 42.2 (34.0-46.0) % MCV 91.6 (80.0-100.0) fL MCH 30.2 (25.0-35.0) pg MCHC 33.0 (31.0-37.0) g/dL RDW 12.4 (11.5-15.5) % Plt Count 206 (150-450) k/uL MPV 8.2 Neutrophils % 75 % Lymphocytes % 18 % Monocytes % 4 % Eosinophils % 1 % Basophils % 0 % Neutrophils # 5.0 (1.3-7.7) k/uL Lymphocytes # 1.2 (1.0-4.8) k/uL Monocytes # 0.3 (0-1.0) k/uL Eosinophils # 0.1 (0-0.7) k/uL Basophils # 0.0 (0-0.2) k/uL Sodium 140 (137-145) mmol/L Potassium 3.7 (3.5-5.1) mmol/L Chloride 106 (98-107) mmol/L Carbon Dioxide 27 (22-30) mmol/L Anion Gap 7 mmol/L BUN 9 (7-17) mg/dL Creatinine 0.82 (0.52-1.04) mg/dL Est GFR (CKD-EPI)AfAm >90 (>60 ml/min/1.73 sqM) Est GFR (CKD-EPI)NonAf >90 (>60 ml/min/1.73 sqM) Glucose 104 H (74-99) mg/dL Calcium 9.3 (8.4-10.2) mg/dL Total Bilirubin 1.6 H (0.2-1.3) mg/dL AST 26 (14-36) U/L ALT 16 (4-34) U/L Alkaline Phosphatase 42 (38-126) U/L Total Protein 7.2 (6.3-8.2) g/dL Albumin 4.0 (3.5-5.0) g/dL Urine HCG, Qual Not Detected (Not Detectd) Disposition Clinical Impression: Dysfunctional uterine bleeding Disposition: HOME SELF-CARE Condition: Good Instructions (If sedation given, give patient instructions): Dysmenorrhea (ED) Additional Instructions: Please follow-up with your [employer]. Return to the emergency room for any worsening symptoms. Is patient prescribed a controlled substance at d/c from ED?: No Referrals: Indra Galvan MD [STAFF PHYSICIAN] - 1-2 days Time of Disposition: 13:25
[2021-02-02 13:44] VITALS: BP 122/79; PULSE 94
[2021-02-03 14:26] LABS: C. trachomatis,PCR Negative (Neg,Equiv); Chlamydia trachomatis Source Urine; N. gonorrhoeae,PCR Negative (Neg,Equiv); Neisseria Source Urine
== END 2021-02-02 13:44 | disposition home or self-care (01) ==
LOC: EC 11:53
DX: N93.8 Other specified abnormal uterine and vaginal bleeding (principal)
CPT/HCPCS: 36415; 80053; 81001; 81025; 85025; 86850; 86900; 86901; 87491; 87591; 87808; 99284

== ENCOUNTER 2021-03-03 14:37 | Emergency (ER) | payer OTHER ==
[2021-03-03 14:41] VITALS: BP 137/87; PULSE 84; RESP 16; TEMP 98.4
--- NOTE | 2021-03-03 15:54 | ED ---
General Adult HPI - General Chief complaint: Needlestick/Exposure Stated complaint: [facility]-Accidental needle stick Time Seen by Provider: 03/03/21 15:11 Source: patient, RN notes reviewed Mode of arrival: ambulatory Limitations: no limitations - History of Present Illness Initial comments: 20-year-old female presents to the emergency department for evaluation of a needle stick injury. Patient is employed at an area [employer]. States she accidentally poked herself with a needle yesterday after giving a resident an insulin injection. States the needle did guardado her skin; reports vigorous cleansing at that time. Denies pain, redness, or swelling at site. Patient is agreeable to postexposure blood work. Patient denies fever, chills, headache, chest pain, shortness of breath, abdominal pain and nausea or vomiting. - Related Data Home Medications Medication Instructions Recorded Confirmed Norethindrone-E.estradiol-Iron 1 tab PO DAILY 02/02/21 02/02/21 [June Fe 24 Tablet] Allergies Allergy/AdvReac Type Severity Reaction Status Date / Time Penicillins Allergy Family Verified 03/03/21 14:41 history Review of Systems ROS Statement: Those systems with pertinent positive or pertinent negative responses have been documented in the HPI. ROS Other: All systems not noted in ROS Statement are negative. Past Medical History Past Medical History: No Reported History History of Any Multi-Drug Resistant Organisms: None Reported Past Surgical History: No Surgical Hx Reported Additional Past Surgical History / Comment(s): d/c Past Anesthesia/Blood Transfusion Reactions: No Reported Reaction Past Psychological History: No Psychological Hx Reported Smoking Status: Never smoker Past Alcohol Use History: None Reported Past Drug Use History: None Reported - Past Family History Mother Family Medical History: No Reported History General Exam Limitations: no limitations (Well-developed, well-nourished female in no acute distress. Initial temperature 98.4, pulse 84, respirations 16, blood pressure 137/87, pulse ox 100% on room air.) General appearance: alert, in no apparent distress Neck exam: Present: normal inspection. Absent: tenderness, meningismus, lymphadenopathy Respiratory exam: Present: normal lung sounds bilaterally. Absent: respiratory distress, wheezes, rales, rhonchi, stridor Cardiovascular Exam: Present: regular rate, normal rhythm, normal heart sounds. Absent: systolic murmur, diastolic murmur, rubs, gallop, clicks GI/Abdominal exam: Present: soft, normal bowel sounds. Absent: distended, tenderness, guarding, rebound, rigid Left Hand Wrist exam: Present: normal inspection, other (Puncture wound to the second digit palmar surface of the distal phalange of the left hand. Unable to visualize puncture site. No erythema or edema noted.). Absent: swelling, erythema Neurological exam: Present: alert, oriented X3, CN II-XII intact Psychiatric exam: Present: normal affect, normal mood Skin exam: Present: warm, dry, intact, normal color. Absent: rash Course Vital Signs 03/03/21 14:39 Temperature 98.4 F Pulse Rate 84 Respiratory 16 Rate Blood Pressure 137/87 O2 Sat by Pulse 100 Oximetry Medical Decision Making - Medical Decision Making 20-year-old female is evaluated status post needlestick exposure that occurred at work yesterday. Unable to visualize any injury, erythema, or edema at site identified as puncture wound. Patient states she thoroughly and vigorously cleansed the wound after injury. Post exposure prophylaxis discussed with patient; she declined. She was also provided with educational pamphlets and reading material. Patient's blood work was ordered as defined by the post exposure care setting. Source blood was able to be run off of blood already in the lab and this was arranged by patient's employer. Patient instructed to follow up with [facility] as directed by her employer. Patient verbalizes understanding and is agreeable with this plan. This patient's care was discussed with my attending Dr. Aguilar. Disposition Clinical Impression: Needlestick injury of finger of left hand Disposition: HOME SELF-CARE Condition: Stable Instructions (If sedation given, give patient instructions): Normal Exam (ED) Additional Instructions: Expect labwork results in 48-72 hours. Further follow-up with [facility] as directed by her employer. Return to the emergency department with any new, worsening, or concerning symptoms. Is patient prescribed a controlled substance at d/c from ED?: No Referrals: None,Stated [Primary Care Provider] - 1-2 days Time of Disposition: 16:24
[2021-03-04 01:15] LABS: Hepatitis B Surface AB- Quant 3.5 mIU/mL; Hepatitis B Surface Antibody Nonreactive (Nonreactive); Hepatitis C IgG Antibody Nonreactive (Nonreactive)
[2021-03-04 20:04] LABS: HIV 2 AB Non-Reactive (Non-Reactive); HIV AB P24 Non-Reactive (Non-Reactive); HIV P24 AG Non-Reactive (Non-Reactive)
== END 2021-03-03 16:38 | disposition home or self-care (01) ==
LOC: EC 14:37
DX: S61.231A Puncture wound without foreign body of left index finger without damage to nail, initial encounter (principal); Z88.0 Allergy status to penicillin; W46.0XXA Contact with hypodermic needle, initial encounter; Y99.0 Civilian activity done for income or pay
CPT/HCPCS: 36415; 86706; 86803; 87390; 99283

== ENCOUNTER → 2021-06-03 | Outpatient (CLI) | payer OTHER ==
--- NOTE | 2021-06-03 10:48 | US ---
EXAMINATION TYPE: Transabdominal DATE OF EXAM: 06/03/2021 9:44 AM COMPARISON: NONE CLINICAL HISTORY: O46.91. Pt states vaginal bleeding that started last night/ denies pain EXAM PERFORMED: Transabdominal (TA) EXAM MEASUREMENTS: GESTATIONAL AGE / DATING Physician Established: Not yet established Dates by LMP: (9 weeks/2 days) EDC: 01/04/2022 Dates by First Scan: No previous this is first scan Dates by Current Scan for: (9 weeks/5 days) EDC: 01/01/2022 MATERNAL ANATOMY Uterus: 9.7 x 7.0 x 8.2 cm Right Ovary: 2.3 x 2.0 x 1.9 cm Left Ovary: 2.3 x 1.6 x 1.7 cm Post CDS / Adnexa: wnl Presence of free fluid: No Presence of subchorionic bleed: No GESTATION / SURVEY CRL: 2.9 cm (9 weeks/5 days) MSD: wnl Yolk Sac (normal less than 6mm): 3mm Heart Rate: 163 bpm Rhythm: Normal IUP: Viable IUP Date of LMP: 03/30/2021 Viable IUP/ No abnormality visualized at this time to account for pt's symptoms Results called to Cristal at 's office at time of exam IMPRESSION: There is a single viable intrauterine noted.
== END | disposition home or self-care (01) ==
LOC: RADUSWWP 09:32
PROVIDERS: ATTEND Obstetrics & Gynecology
DX: O46.91 Antepartum hemorrhage, unspecified, first trimester (principal); Z3A.09 9 weeks gestation of pregnancy
CPT/HCPCS: 76801

== ENCOUNTER 2021-12-05 06:10 | Emergency (ER) | payer OTHER ==
[2021-12-05 06:18] VITALS: BP 135/78; PULSE 95; RESP 20; TEMP 98.9
[2021-12-05] MEDS ORDERED: CEPHALEXIN 500MG STARTER PACK 4 CAP BTL PO STA (06:55)
--- NOTE | 2021-12-05 06:55 | ED ---
Skin/Abscess/FB HPI - General Chief complaint: Skin/Abscess/Foreign Body Stated complaint: Cyst Time Seen by Provider: 12/05/21 06:11 Source: patient, RN notes reviewed Mode of arrival: ambulatory Limitations: no limitations - History of Present Illness Initial comments: 19-year-old female presents emergency Department with chief complaint of possible labial abscess. Patient states she has pain she did recently shaved. Patient states his been no drainage no complaints she has 36 weeks . Patient denies any fevers chills no other complaints. - Related Data Home Medications Medication Instructions Recorded Confirmed norethindrone-e.estradioL-iron 1 tab PO DAILY 02/02/21 02/02/21 [Junel Fe 24 Tablet] Previous Rx's Medication Instructions Recorded Cephalexin [Keflex] 500 mg PO Q6HR #28 cap 12/05/21 Allergies Allergy/AdvReac Type Severity Reaction Status Date / Time Penicillins Allergy Family Verified 12/05/21 06:17 history Review of Systems ROS Statement: Those systems with pertinent positive or pertinent negative responses have been documented in the HPI. ROS Other: All systems not noted in ROS Statement are negative. Past Medical History Past Medical History: No Reported History History of Any Multi-Drug Resistant Organisms: None Reported Past Surgical History: No Surgical Hx Reported Additional Past Surgical History / Comment(s): d/c Past Anesthesia/Blood Transfusion Reactions: No Reported Reaction Past Psychological History: No Psychological Hx Reported Smoking Status: Never smoker Past Alcohol Use History: None Reported Past Drug Use History: None Reported - Past Family History Mother Family Medical History: No Reported History General Exam Limitations: no limitations General appearance: alert, in no apparent distress Head exam: Present: atraumatic, normocephalic, normal inspection Eye exam: Present: normal appearance, PERRL, EOMI. Absent: scleral icterus, conjunctival injection, periorbital swelling Respiratory exam: Present: normal lung sounds bilaterally. Absent: respiratory distress, wheezes, rales, rhonchi, stridor Cardiovascular Exam: Present: regular rate, normal rhythm, normal heart sounds. Absent: systolic murmur, diastolic murmur, rubs, gallop, clicks GI/Abdominal exam: Present: soft, normal bowel sounds, other (Gravid abdomen). Absent: distended, tenderness, guarding, rebound, rigid External exam: Absent: normal external exam (0.5cm erythematous nonfluctuant area in the left labia) Neurological exam: Present: alert Skin exam: Present: warm, dry, intact, normal color. 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 Disposition Clinical Impression: Labial abscess Disposition: HOME SELF-CARE Condition: Stable Instructions (If sedation given, give patient instructions): Abscess (ED) Additional Instructions: Please return to the Emergency Department if symptoms worsen or any other concerns. Prescriptions: Cephalexin [Keflex] 500 mg PO Q6HR #28 cap Is patient prescribed a controlled substance at d/c from ED?: No Referrals: None,Stated [Primary Care Provider] - 1-2 days Time of Disposition: 06:55
== END 2021-12-05 07:05 | disposition home or self-care (01) ==
LOC: EC 06:10
DX: O23.593 Infection of other part of genital tract in pregnancy, third trimester (principal); N76.4 Abscess of vulva; Z88.0 Allergy status to penicillin; Z3A.36 36 weeks gestation of pregnancy
CPT/HCPCS: 99283

== ENCOUNTER 2021-12-24 21:56 | Inpatient (IN) | payer OTHER ==
[2021-12-24] MEDS ORDERED: OXYTOCIN 10 UNIT/ML 1 ML VIAL IM PRN (23:17)
[2021-12-24] MEDS ORDERED: TERBUTALINE 1 MG/ML VIAL SQ PRN (23:17)
[2021-12-24] MEDS ORDERED: LIDOCAINE 0.5% (PF) 5 MG/ML (50 ML SDV) SQ PRN (23:17)
[2021-12-24] MEDS ORDERED: METHYLERGONOVINE 0.2 MG/ML 1 ML AMP IM PRN (23:17)
[2021-12-24] MEDS ORDERED: CARBOPROST TROMETHAMINE 250 MCG/ML 1 ML AMP IM PRN (23:17)
[2021-12-24] MEDS ORDERED: BUTORPHANOL 1 MG/ML 1 ML VIAL IV PRN (23:19)
[2021-12-24] MEDS ORDERED: OXYTOCIN 30 UNITS/500 ML NS 30 UNIT in SALINE 1 500ML.BAG IV SCH (23:30)
[2021-12-24] MEDS ORDERED: LACTATED RINGERS 1,000 ML IV SCH (23:30)
[2021-12-25 00:28] LABS: Basophils % (A) 0 %; Eosinophils % (A) 0 %; HCT 42.6 % (34.0-46.0); HGB 13.7 gm/dL (11.4-16.0); Hypochromasia Slight; Lymphocytes % (A) 9 %; MCH 27.6 pg (25.0-35.0); MCHC 32.2 g/dL (31.0-37.0); MCV 85.8 fL (80.0-100.0); Mean Platelet Volume 9.5; Monocytes # (A) 0.5 k/uL (0-1.0); Monocytes % (A) 5 %; Neutrophils # (A) 9.7 k/uL (1.3-7.7); Neutrophils % (A) 84 %; Platelet Count 228 k/uL (150-450); RBC 4.97 m/uL (3.80-5.40); RDW 15.1 % (11.5-15.5); WBC 11.5 k/uL (3.8-10.6)
[2021-12-25] MEDS ORDERED: BUPIVACAINE (PF) 0.25% 30 ML VIAL ONE (02:30)
[2021-12-25] MEDS ORDERED: SODIUM CHLORIDE 0.9% 100 ML BAG ONE (02:30)
[2021-12-25] MEDS ORDERED: fentaNYL (PF) 50 MCG/ML 5 ML AMP ONE (02:30)
--- NOTE | 2021-12-25 02:42 | P.MSEPDOC ---
Presenting Problems - Arrival Data Date of Arrival on Unit: 12/24/21 Time of Arrival on Unit: 21:56 Mode of Transport: Wheelchair - Complaint OB-Reason for Admission/Chief Complaint: Possible Onset of Labor Comment: Cxns started at 2030 Q7min, pain 8/10 Medical History - Information : 3 Para: 0 Term: 0 : 0 Abortions: Spontaneous or Elective: 0 Number of Living Children: 0 - Gestational Age Gestational Age by ROLANDA (wks/days): 38 Weeks and 3 Days Review of Systems - Review of Systems Constitutional: No problems Breast: No problems ENT: No problems Cardiovascular: No problems Respiratory: No problems Gastrointestinal: No problems Genitourinary: No problems Musculoskeletal: No problems Neurological: No problems Skin: No problems Vital Signs - Temperature Temperature: 97.8 F Temperature Source: Oral - Pulse Right Brachial Pulse Rate: 86 Pulse Assessment Method: Automatic Cuff - Respirations Respiratory Rate: 18 Oxygen Delivery Method: Room Air O2 Sat by Pulse Oximetry: 97 - Blood Pressure Right Arm Blood Pressure: 124/77 Blood Pressure Mean: 92 Blood Pressure Source: Automatic Cuff Medical Screen Scoring - Cervical Exam Dilation (cm): 3 Effacement (%): 80 Station: -2 Membranes: Intact - Uterine Contractions Frequency From (mins): 1 Frequency To (mins): 3 Duration From (seconds): 60 Duration To (seconds): 100 Intensity: Strong Resting: Soft to palpation - Assessment - Baby A Baseline FHR: 145 Heart Rate - NICHD Category: Category I (Normal) NST: Reactive Physician Notification - Physician Notified Physician Notified Date: 12/24/21 Physician Notified Time: 22:22 Physician: Maggi Chavez New Order Received: Yes - Notification Comment Comment: 12/24/2021 22:[address] Chavez pt c/o cxns, maternal/ status, denies. complications with the , denies bleeding and/or ROM. Pt is very uncomfortable,. cervix is dilated to 2/80/-2. rating pain at an 8/10 at this time. RN to recheck pt's. cervix an hour post initial check and call Dr. Chavez afterwards. 12/24/2021 23:[address] Chavez maternal/ status; cervical exam; pain 8/10. still. RN to admit pt for labor. RN to start pitocin if patient's contractions space. out; pt may have stadol 1mg Q2H for pain, or an epidural when she would like one. RN to. call Dr. Chavez when pt is 7cm dilated. Maternal Triage Index - Maternal Triage Index Presenting for scheduled procedure w/no complaint: No - Stat/Priority 1 Stat Priority 1: No - Urgent/Priority 2 Urgent Priority 2: No - Prompt/Priority 3 Prompt Priority 3: Yes Criteria Met for Priority 3: >34wks with regular contractions; signs of active labor Disposition - Disposition OB Disposition: Admit I agree with the RN Medical Screening Exam: Yes Case reviewed; plan agreed upon as documented in EMR&OBIX.: Yes Diagnosis: ENCOUNTER FOR FULL-TERM UNCOMPLICATED DELIVERY
[2021-12-25] MEDS: LACTATED RINGERS 1,000 ML IV SCH ×2 (03:41)
[2021-12-25] MEDS ORDERED: BENZOCAINE/MENTHOL SPRAY 1 GM/SPRAY AEROSOL TOPICAL PRN (05:45)
[2021-12-25] MEDS ORDERED: diphenhydrAMINE 50 MG CAP PO PRN (05:45)
[2021-12-25] MEDS ORDERED: LANOLIN CREAM 5 GM TUBE TOPICAL PRN (05:45)
[2021-12-25] MEDS ORDERED: diphenhydrAMINE 25 MG CAP PO PRN (05:45)
[2021-12-25] MEDS ORDERED: ZOLPIDEM 5 MG TAB PO PRN (05:45)
[2021-12-25] MEDS ORDERED: HYDROCORTISONE 2.5% RECTAL CREAM 30 GM TUBE RECTAL PRN (05:45)
[2021-12-25] MEDS ORDERED: OXYTOCIN 30 UNITS/500 ML NS 30 UNIT in SALINE 1 500ML.BAG IV SCH (05:45)
[2021-12-25] MEDS ORDERED: diphenhydrAMINE 50 MG/ML 1 ML VIAL IVP PRN ×2 (05:45)
[2021-12-25] MEDS ORDERED: SIMETHICONE 80 MG CHEWABLE PO PRN (05:45)
--- NOTE | 2021-12-25 05:49 | P.HPOB ---
History of Present Illness H&P Date: 12/25/21 Chief Complaint: Normal labor 21-year-old presents at 38 weeks and 3 days in active labor. Her cervix went from 3 cm to 4 cm dilated, 90% effaced, -2 station. She is chula every 2-4 minutes. heart tones 135 with moderate variability and reactive. Review of Systems All systems: negative Constitutional: Denies chills, Denies fever Eyes: denies blurred vision, denies pain Ears, nose, mouth and throat: Denies headache, Denies sore throat Cardiovascular: Denies chest pain, Denies shortness of breath Respiratory: Denies cough Gastrointestinal: Denies abdominal pain, Denies diarrhea, Denies nausea, Denies vomiting Genitourinary: Denies dysuria, Denies hematuria Musculoskeletal: Denies myalgias Integumentary: Denies pruritus, Denies rash Neurological: Denies numbness, Denies weakness Psychiatric: Denies anxiety, Denies depression Endocrine: Denies fatigue, Denies weight change Past Medical History Past Medical History: No Reported History Additional Past Medical History / Comment(s): Obstetric history: 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 This is her third and she's had care with Dr. Galvan. Blood type is O+, antibodies negative, rubella immune, hepatitis B negative, HIV nonreactive RPR nonreactive and GBS negative. History of Any Multi-Drug Resistant Organisms: None Reported Past Surgical History: No Surgical Hx Reported Additional Past Surgical History / Comment(s): D&C in August 2020 Past Anesthesia/Blood Transfusion Reactions: No Reported Reaction Past Psychological History: No Psychological Hx Reported Smoking Status: Never smoker Past Alcohol Use History: None Reported Past Drug Use History: None Reported - Past Family History Mother Family Medical History: Asthma Father History Unknown: Yes Medications and Allergies Home Medications Medication Instructions Recorded Confirmed Type Vit No.179/Iron/Folic 1 each PO 12/24/21 History [ Tablet] Allergies Allergy/AdvReac Type Severity Reaction Status Date / Time Penicillins Allergy Family Verified 12/24/21 22:00 history Exam Osteopathic Statement: *. No significant issues noted on an osteopathic st ructural exam other than those noted in the History and Physical/Consult. Vital Signs Temp Pulse Resp BP Pulse Ox 12/25/21 02:41 97.8 F 86 18 124/77 97 08/28/22 00:11 97.8 F 86 18 124/77 97 12/24/21 23:13 97.8 F 86 18 124/77 97 12/24/21 21:59 86 16 124/77 97 Intake and Output 12/24/21 12/24/21 12/25/21 14:59 22:59 06:59 Other: Weight 63.957 kg 63.957 kg Heart: Regular rate and rhythm Lungs: Clear to auscultation bilaterally Abdomen: Soft, nontender Extremities: Negative Homans sign Results Result Diagrams: 12/24/21 23:55 Abnormal Lab Results - Last 24 Hours (Table) 12/24/21 Range/Units 23:55 WBC 11.5 H (3.8-10.6) k/uL Neutrophils # 9.7 H (1.3-7.7) k/uL Assessment and Plan (1) Normal labor Current Visit: Yes Status: Acute Code(s): O80 - ENCOUNTER FOR FULL-TERM UNCOMPLICATED DELIVERY; Z37.9 - OUTCOME OF DELIVERY, UNSPECIFIED SNOMED Code(s): 10998015 Plan: 1. Admit to family place 2. Expectant management 3. Anticipate normal vaginal delivery
--- NOTE | 2021-12-25 05:52 | P.PROBDLV ---
Vaginal Delivery Note - . Vaginal Delivery Note: 21-year-old presents at 38 weeks and 3 days in active labor. Her cervix went from 3 cm to 4 cm dilated, 90% effaced, -2 station. She is chula every 2-4 minutes. heart tones 135 with moderate variability and reactive. Amniotomy performed at 1:33 AM, meconium stained fluid noted. She soon became uncomfortable after this and asked for an epidural. She was comfortable with the epidural. Her cervix was completely dilated at 4:40 AM. She pushed baby to perineum and started to have some tears on her labia as well as the heart tones were going down to the 100s. Midline episiotomy was performed after lidocaine was injected. Patient delivered a viable female over midline episiotomy under epidural anesthesia at 5:14 AM. Head delivered OA, anterior shoulder delivered gentle downward guidance followed by posterior shoulder and rest of body. Nose and mouth bulb suctioned, cord clamped and cut, infant placed mother's abdomen. Apgars 8, 9, weight 7 lbs. 12 oz. Placenta delivered spontaneously, intact with three-vessel cord at 5:17 AM. Vagina, cervix, and perineum were inspected. Second-degree midline episiotomy and bilateral labial lacerations were repaired with 3-0 Vicryl. Estimated blood loss 200 mL. Mother and baby in stable condition.
[2021-12-25] MEDS: SENNOSIDES-DOCUSATE SODIUM 1 EACH TAB PO SCH ×2 (09:18→20:34)
[2021-12-25] MEDS: IBUPROFEN 600 MG TAB PO PRN (09:19)
[2021-12-25] MEDS: ACETAMINOPHEN TAB 325 MG TAB PO PRN (16:05)
[2021-12-26] MEDS: ACETAMINOPHEN TAB 325 MG TAB PO PRN ×3 (00:01→21:11)
--- NOTE | 2021-12-26 05:57 | P.PNOBGVD ---
Subjective - Subjective Patient reports: Reports appetite normal, Reports voiding normally, Reports pain well controlled, Reports ambulating normally [place]: doing well Objective - Latest Vital Signs Latest vital signs: Vital Signs Temp Pulse Resp BP Pulse Ox 12/26/21 00:00 98.0 F 76 17 121/74 99 12/25/21 20:00 98.3 F 78 17 109/73 100 12/25/21 16:00 97.9 F 84 16 116/74 12/25/21 12:00 97.8 F 88 16 107/62 12/25/21 07:55 98.2 F 90 16 110/69 12/25/21 07:10 91 120/56 12/25/21 06:40 100 117/56 12/25/21 06:25 99.0 F 101 H 18 108/59 Intake and Output 12/25/21 12/25/21 12/26/21 14:59 22:59 06:59 Other: # Voids 1 1 2 # Bowel Movements 1 - Exam Lungs: bilateral: normal Chest: Normal S1, Normal S2 Extremities: Present: normal Abdomen: Present: normal appearance, soft Uterus: Present: normal, firm Assessment and Plan Assessment: day #1. Patient is resting without complaints and wishes to go home. Vital signs are stable and she is afebrile. Uterus is firm nontender and she is having normal lochia. My impression this is a normal course. Plan is to continue routine care discharge home later today. (1) Normal labor Current Visit: Yes Status: Acute Code(s): O80 - ENCOUNTER FOR FULL-TERM UNCOMPLICATED DELIVERY; Z37.9 - OUTCOME OF DELIVERY, UNSPECIFIED SNOMED Code(s): 25106897
--- NOTE | 2021-12-26 06:01 | P.DS ---
Providers Date of admission: 12/24/21 23:11 Expected date of discharge: 12/26/21 Attending physician: Indra Galvan Primary care physician: Stated None - Discharge Diagnosis(es) (1) Normal labor Current Visit: Yes Status: Acute Hospital Course: Please see dictated H&P and delivery note per Dr. Chavez on this patient's admission. Brief summary this pleasant 21-year-old 3 para 0 female 3 8- 1/2 weeks gestation who is admitted to labor and delivery in active labor. Patient goes on to have a vaginal delivery viable female . Please see dic tated delivery note. day 1 patient wishes to go home. Patient's felt be stable for discharge home follow up with me in 6 weeks. Procedures: Normal spontaneous vaginal delivery Patient Condition at Discharge: Good Plan - Discharge Summary New Discharge Prescriptions: New Ibuprofen [Motrin] 600 mg PO Q6HR PRN #30 tab PRN Reason: Mild Pain (Scale 1 To 3) No Action Vit No.179/Iron/Folic [ Tablet] 1 each PO Discharge Medication List Vit No.179/Iron/Folic [ Tablet] 1 each PO 12/24/21 [History] Ibuprofen [Motrin] 600 mg PO Q6HR PRN #30 tab 12/26/21 [Rx] Follow up Appointment(s)/Referral(s): Indra Galvan MD [STAFF PHYSICIAN] - 6 Weeks Patient Instructions/Handouts: Vaginal Delivery (DC) Activity/Diet/Wound Care/Special Instructions: No intercourse or anything per vagina for 6 weeks. Please call if any fever, chills, excessive vaginal bleeding, and/or abdominal pain. Discharge Disposition: HOME SELF-CARE
[2021-12-26 06:39] LABS: Basophils % (A) 0 %; Eosinophils % (A) 0 %; HCT 29.6 % (34.0-46.0); Hypochromasia Slight; Lymphocytes # (A) 1.4 k/uL (1.0-4.8); Lymphocytes % (A) 14 %; MCH 27.8 pg (25.0-35.0); MCHC 32.5 g/dL (31.0-37.0); MCV 85.6 fL (80.0-100.0); Monocytes # (A) 0.4 k/uL (0-1.0); Monocytes % (A) 4 %; Neutrophils # (A) 8.6 k/uL (1.3-7.7); Neutrophils % (A) 81 %; Platelet Count 192 k/uL (150-450); RBC 3.46 m/uL (3.80-5.40); RDW 15.5 % (11.5-15.5); WBC 10.7 k/uL (3.8-10.6)
[2021-12-26 06:48] LABS: HGB 9.6 gm/dL (11.4-16.0)
[2021-12-26] MEDS: SENNOSIDES-DOCUSATE SODIUM 1 EACH TAB PO SCH ×2 (09:31→21:10)
[2021-12-26] MEDS: IBUPROFEN 600 MG TAB PO PRN (16:05)
[2021-12-27 00:04] VITALS: RESP 16
[2021-12-27] MEDS: ACETAMINOPHEN TAB 325 MG TAB PO PRN (05:49)
--- NOTE | 2021-12-27 06:27 | P.PNOBGVD ---
Subjective - Subjective Patient reports: Reports appetite normal, Reports voiding normally, Reports pain well controlled, Reports ambulating normally : doing well Objective - Latest Vital Signs Latest vital signs: Vital Signs Temp Pulse Resp BP Pulse Ox 12/27/21 00:00 98.4 F 69 16 125/70 99 12/26/21 15:49 98 F 75 14 114/68 12/26/21 08:00 98 F 77 14 95/64 - Exam Lungs: bilateral: normal Chest: Normal S1, Normal S2 Extremities: Present: normal Abdomen: Present: normal appearance, soft Uterus: Present: normal, firm - Labs Labs: Abnormal Lab Results - Last 24 Hours (Table) 12/26/21 Range/Units 06:27 WBC 10.7 H (3.8-10.6) k/uL RBC 3.46 L (3.80-5.40) m/uL Hgb 9.6 L D (11.4-16.0) gm/dL Hct 29.6 L (34.0-46.0) % Neutrophils # 8.6 H (1.3-7.7) k/uL Assessment and Plan Assessment: day #2. Patient changed her mind and decided to stay. Vital signs are stable she is afebrile. Uterus is firm nontender she is having normal lochia. My impression this is a normal course. Plan is to continue routine care discharge home today. (1) Normal labor Current Visit: Yes Status: Acute Code(s): O80 - ENCOUNTER FOR FULL-TERM UNCOMPLICATED DELIVERY; Z37.9 - OUTCOME OF DELIVERY, UNSPECIFIED SNOMED Co de(s): 96138861
[2021-12-27] MEDS: SENNOSIDES-DOCUSATE SODIUM 1 EACH TAB PO SCH (08:42)
[2021-12-27 08:43] VITALS: BP 89/53; PULSE 99; TEMP 97.5
[2021-12-27] MEDS: IBUPROFEN 600 MG TAB PO PRN (09:03)
== END 2021-12-27 10:15 | disposition home or self-care (01) | DRG 807 ==
LOC: FBPOP 21:56 → 4FBP 23:11
PROVIDERS: ADMIT Obstetrics & Gynecology; ATTEND Obstetrics & Gynecology
PROC: 10E0XZZ Delivery of Products of Conception, External Approach (ICD-10-PCS; principal; 2021-12-25)
PROC: 4A0HXCZ Measurement of Products of Conception, Cardiac Rate, External Approach (ICD-10-PCS; 2021-12-25)
PROC: 0W8NXZZ Division of Female Perineum, External Approach (ICD-10-PCS; 2021-12-25)
PROC: 10907ZC Drainage of Amniotic Fluid, Therapeutic from Products of Conception, Via Natural or Artificial Opening (ICD-10-PCS; 2021-12-25)
PROC: 0UQMXZZ Repair Vulva, External Approach (ICD-10-PCS; 2021-12-25)
DX: O77.0 Labor and delivery complicated by meconium in amniotic fluid (principal); Z37.0 Single live birth; O71.82 Other specified trauma to perineum and vulva; Z3A.38 38 weeks gestation of pregnancy; Z88.0 Allergy status to penicillin; Z87.59 Personal history of other complications of pregnancy, childbirth and the puerperium
CPT/HCPCS: 59025; 85025; 86850; 86900; 86901; 99213

== ENCOUNTER 2024-04-10 13:26 | Outpatient (CLI) | payer OTHER ==
[2024-04-10 14:32] LABS: Appearance,Urine Clear (Clear); Bacteria,Urine Rare /hpf; Bilirubin,Urine Negative (Negative); Blood,Urine Negative (Negative); Budding Yeast,Urine Occasional /hpf; Color,Urine Colorless; Glucose,Urine (UA) Negative (Negative); Hyaline Casts,Urine 1 /lpf (0-2); Ketones,Urine Negative (Negative); Leukocyte Esterase,Urine Large (Negative); Mucus,Urine Rare /hpf; Nitrite,Urine Negative (Negative); PH, Urine 7.5 (5.0-8.0); Protein,Urine Negative (Negative); RBC,Urine 2 /hpf (0-5); Specific Gravity,Urine 1.008 (1.001-1.035); Squamous Epithelial Cell,Urine 8 /hpf (0-4); Urobilinogen,Urine <2.0 mg/dL (<2.0); WBC,Urine 1 /hpf (0-5)
[2024-04-10] MEDS: LACTATED RINGERS 1,000 ML IV ONE (15:52)
[2024-04-10] MEDS: TERBUTALINE 1 MG/ML VIAL SQ PRN (17:08)
[2024-04-10 18:16] VITALS: PULSE 104; RESP 16; TEMP 97.6
--- NOTE | 2024-04-20 11:56 | P.MSEPDOC ---
Presenting Problems - Arrival Data Date of Arrival on Unit: 04/10/24 Time of Arrival on Unit: 13:26 Mode of Transport: Ambulatory - Complaint OB-Reason for Admission/Chief Complaint: Possible Onset of Labor Medical History - Information : 4 Para: 1 Abortions: Spontaneous or Elective: 2 Number of Living Children: 1 - Gestational Age Gestational Age by ROLANDA (wks/days): 32 Weeks and 2 Days Review of Systems - Review of Systems Constitutional: No problems Breast: No problems ENT: No problems Cardiovascular: No problems Respiratory: No problems Gastrointestinal: No problems Genitourinary: No problems Musculoskeletal: No problems Neurological: No problems Skin: No problems Vital Signs - Temperature Temperature: 97.6 F Temperature Source: Temporal Artery Scan - Pulse Right Sitting Brachial Pulse Rate: 104 Pulse Assessment Method: Automatic Cuff - Respirations Respiratory Rate: 16 Oxygen Delivery Method: Room Air O2 Sat by Pulse Oximetry: 98 Medical Screen Scoring - Cervical Exam Dilation (cm): 0 Effacement (%): 0 Membranes: Intact - Uterine Contractions Frequency From (mins): 3 Frequency To (mins): 4 Duration From (seconds): 60 Duration To (seconds): 60 Intensity: Mild Resting: Soft to palpation - Assessment - Baby A Baseline FHR: 135 Heart Rate - NICHD Category: Category I (Normal) NST: Reactive Physician Notification - Physician Notified Physician Notified Date: 04/10/24 Physician Notified Time: 14:10 Physician: Mauricio Mcdonald New Order Received: Yes (fluids, terbutaline) Maternal Triage Index - Maternal Triage Index Presenting for scheduled procedure w/no complaint: No - Stat/Priority 1 Stat Priority 1: No - Urgent/Priority 2 Urgent Priority 2: Yes Provider Notified: Mauricio Mcdonald Provider Notified Time: 14:10 Criteria Met for Priority 2: <34 wks, contx Disposition - Disposition OB Disposition: Discharge to home Discharge Date: 04/10/24 Discharge Time: 18:07 I agree with the RN Medical Screening Exam: Yes Physician's MSE Comment: I have neither seen nor examined the patient. Case reviewed; plan agreed upon as documented in EMR&OBIX.: Yes Diagnosis: RELATED CONDITIONS, UNSPECIFIED, THIRD TRIMESTER
== END 2024-04-10 18:07 | disposition home or self-care (01) ==
LOC: FBPOP 13:26
PROVIDERS: ATTEND Obstetrics & Gynecology
DX: O47.03 False labor before 37 completed weeks of gestation, third trimester (principal); Z3A.32 32 weeks gestation of pregnancy; Z88.0 Allergy status to penicillin
CPT/HCPCS: 59025; 96360; 96372; 84112; 82731; 81001; G0463; J3105; 99214

== ENCOUNTER 2024-04-16 02:21 | Outpatient (CLI) | payer OTHER | END 2024-04-16 03:25 | disposition home or self-care (01) | LOC: FBPOP 02:21 | PROVIDERS: ATTEND Obstetrics & Gynecology | DX: O47.9 False labor, unspecified (principal); Z88.0 Allergy status to penicillin; Z3A.00 Weeks of gestation of pregnancy not specified | CPT/HCPCS: 59025; 84112; G0463; 99213 ==

== ENCOUNTER 2024-04-26 05:30 | Outpatient (CLI) | payer OTHER ==
[2024-04-26 06:50] LABS: Appearance,Urine Clear (Clear); Bilirubin,Urine Negative (Negative); Blood,Urine Negative (Negative); Color,Urine Light Yellow; Glucose,Urine (UA) Negative (Negative); Ketones,Urine Negative (Negative); Leukocyte Esterase,Urine Large (Negative); Mucus,Urine Rare /hpf; Nitrite,Urine Negative (Negative); Protein,Urine Trace (Negative); RBC,Urine <1 /hpf (0-5); Specific Gravity,Urine 1.017 (1.001-1.035); Squamous Epithelial Cell,Urine 1 /hpf (0-4); Urobilinogen,Urine <2.0 mg/dL (<2.0); WBC,Urine 4 /hpf (0-5)
[2024-04-26] MEDS: ACETAMINOPHEN IV (For NPO) 1,000 MG in EMPTY BAG 1 BAG IVPB ONE (06:51)
[2024-04-26] MEDS: LACTATED RINGERS 1,000 ML IV ONE (06:52)
[2024-04-26 07:54] LABS: Basophils % (A) 0 %; Eosinophils % (A) 0 %; HCT 31.7 % (34.0-46.0); HGB 10.2 gm/dL (11.4-16.0); Hypochromasia Slight; Lymphocytes % (A) 11 %; MCHC 32.3 g/dL (31.0-37.0); MCV 83.5 fL (80.0-100.0); Mean Platelet Volume 9.3; Monocytes # (A) 0.5 k/uL (0-1.0); Monocytes % (A) 5 %; Neutrophils # (A) 7.3 k/uL (1.3-7.7); Neutrophils % (A) 81 %; Platelet Count 208 k/uL (150-450); Poikilocytosis Slight; RDW 14.1 % (11.5-15.5); WBC 9.1 k/uL (3.8-10.6)
[2024-04-26] MEDS: MORPHINE SULFATE 2 MG/ML SYRINGE IVP STA (08:13)
--- NOTE | 2024-04-26 08:23 | US ---
EXAMINATION TYPE: US abdomen limited DATE OF EXAM: 04/26/2024 COMPARISON: NONE CLINICAL INDICATION: Female, 23 years old with history of Abdominal pain in ; mid abd pain TECHNIQUE: Grayscale and color Doppler imaging of the right upper quadrant. FINDINGS: EXAM MEASUREMENTS: Liver Length: 14.5 cm Gallbladder Wall: 0.1 cm CBD: obscured by bowel gas Right Kidney: 10.3x4.1x4.7 cm MULTIPLE WIRE SAWYER NOTES: Pancreas: Tail obscured by overlying bowel gas Liver: wnl Gallbladder: wnl Evidence for sonographic Diaz's sign: CBD: Obscured by overlying bowel gas Right Kidney: wnl patient scanned sitting up. Exam severely limited by patient cooperation, bowel gas IMPRESSION: No evidence for acute process. [facility], , 04/26/2024 8:21 AM
--- NOTE | 2024-04-26 08:50 | US ---
EXAMINATION TYPE: US abdomen APPY DATE OF EXAM: 04/26/2024 COMPARISON: NONE CLINICAL INDICATION: Female, 23 years old with history of lower abdominal pain; mid abd pain in pregn ned TECHNIQUE: Multiple sonographic images of the right lower quadrant were obtained with graded compress ion with grayscale and color Doppler imaging. FINDINGS: APPENDIX not visualized Is the appendix seen in its entirety from the proximal cecum to distal end: no Is the appendix compressible: not visualized Does the appendix wall appear hypervascular: not visualized Is an appendicolith present: not visualized Is there inflammatory changes or free fluid present: not visualized DISTRIBUTOR ADVERTISING MATERIAL NOTES: appendix not visualized. Exam limited by late gestation , patient positio birgit, bowel gas IMPRESSION: Nonvisualization of the appendix in the right lower quadrant. This does not exclude diagnosis of acut e appendicitis. [facility], , 04/26/2024 8:47 AM
--- NOTE | 2024-04-26 08:51 | US ---
EXAMINATION TYPE: US OB limited DATE OF EXAM: 04/26/2024 COMPARISON: NONE CLINICAL INDICATION: Female, 23 years old with history of abdominal pain; mid abd pain, asses for HRT and placenta TECHNIQUE:: Transabdominal (TA) FINDINGS: GESTATIONAL AGE / DATING Physician Established: (34 weeks No growth performed on today?s study per ordering physician SURVEY PLACENTA: Anterior PREVIA: No Previa Ultrasound evidence of abruption? no HEART RATE: 170 bpm RHYTHM: Normal slightly elevated heart rate IMPRESSION: 1. Single live intrauterine gestation. The upper limits of normal. 2. No evidence for placental abruption no evidence for placenta previa. [facility], , 04/26/2024 8:49 AM
[2024-04-26 12:44] VITALS: BP 113/67; PULSE 89; RESP 16; TEMP 98.9
--- NOTE | 2024-04-26 15:39 | P.MSEPDOC ---
Presenting Problems - Arrival Data Date of Arrival on Unit: 04/26/24 Time of Arrival on Unit: 05:30 Mode of Transport: Portable - Complaint OB-Reason for Admission/Chief Complaint: Pain Comment: abdominal pain Medical History - Information : 4 Para: 1 Term: 1 : 0 Abortions: Spontaneous or Elective: 2 Number of Living Children: 1 - Gestational Age Gestational Age by ROLANDA (wks/days): 34 Weeks and 4 Days Review of Systems - Review of Systems Constitutional: No problems Breast: No problems ENT: No problems Cardiovascular: No problems Respiratory: No problems Gastrointestinal: No problems Genitourinary: No problems Musculoskeletal: No problems Neurological: No problems Skin: No problems Vital Signs - Temperature Temperature: 98.9 F Temperature Source: Oral - Pulse Right Pulse Rate: 89 Pulse Assessment Method: Automatic Cuff - Respirations Respiratory Rate: 16 Oxygen Delivery Method: Room Air - Blood Pressure Right Arm Blood Pressure: 113/67 Blood Pressure Mean: 82 Blood Pressure Source: Automatic Cuff Medical Screen Scoring - Cervical Exam Dilation (cm): 0 - Assessment - Baby A Baseline FHR: 125 Heart Rate - NICHD Category: Category I (Normal) NST: Reactive Physician Notification - Physician Notified Physician Notified Date: 04/26/24 Physician Notified Time: 12:43 Physician: mundo Aquino Order Received: Yes - Notification Comment Comment: pt to discharge Maternal Triage Index - Urgent/Priority 2 Urgent Priority 2: Yes Provider Notified: joelle Provider Notified Time: 07:00 Criteria Met for Priority 2: severe pain Disposition - Disposition OB Disposition: Discharge to home Discharge Date: 04/26/24 Discharge Time: 12:43 I agree with the RN Medical Screening Exam: Yes Physician's MSE Comment: I have neither seen nor examined the patient Case reviewed; plan agreed upon as documented in EMR&OBIX.: Yes Diagnosis: PELVIC AND PERINEAL PAIN
== END 2024-04-26 12:46 | disposition home or self-care (01) ==
LOC: FBPOP 05:30
PROVIDERS: ATTEND Obstetrics & Gynecology
DX: O26.893 Other specified pregnancy related conditions, third trimester (principal); R10.9 Unspecified abdominal pain; R10.2 Pelvic and perineal pain; Z3A.34 34 weeks gestation of pregnancy; Z88.0 Allergy status to penicillin
CPT/HCPCS: 59025; 96361; 96365; 85025; 81001; 76705; 76815; G0463; J2270; J0131; 99214

== ENCOUNTER 2024-05-26 13:00 | Outpatient (CLI) | payer OTHER ==
[2024-05-26 15:37] VITALS: BP 119/75; PULSE 96; RESP 17; TEMP 97.7
--- NOTE | 2024-06-27 23:49 | P.MSEPDOC ---
Presenting Problems - Arrival Data Date of Arrival on Unit: 05/26/24 Time of Arrival on Unit: 13:00 Mode of Transport: Ambulatory - Complaint OB-Reason for Admission/Chief Complaint: Possible Onset of Labor Comment: pt presents to triage with ctx's getting more intense Medical History - Information : 4 Para: 1 Term: 1 : 0 Abortions: Spontaneous or Elective: 2 Number of Living Children: 1 - Gestational Age Gestational Age by ROLANDA (wks/days): 38 Weeks and 6 Days Review of Systems - Review of Systems Constitutional: No problems Breast: No problems ENT: No problems Cardiovascular: No problems Respiratory: No problems Gastrointestinal: No problems Genitourinary: No problems Musculoskeletal: No problems Neurological: No problems Skin: No problems Vital Signs - Temperature Temperature: 97.7 F Temperature Source: Temporal Artery Scan - Pulse Right Brachial Pulse Rate: 96 Pulse Assessment Method: Automatic Cuff - Respirations Respiratory Rate: 17 Oxygen Delivery Method: Room Air O2 Sat by Pulse Oximetry: 98 - Blood Pressure Right Arm Blood Pressure: 119/75 Blood Pressure Mean: 89 Blood Pressure Source: Automatic Cuff Medical Screen Scoring - Cervical Exam Dilation (cm): 1.5 Effacement (%): 50 Station: -3 - Uterine Contractions Frequency From (mins): 2 Frequency To (mins): 8 Duration From (seconds): 60 Duration To (seconds): 120 Intensity: Mild Resting: Soft to palpation - Assessment - Baby A Baseline FHR: 140 Heart Rate - NICHD Category: Category I (Normal) NST: Reactive Physician Notification - Physician Notified Physician Notified Date: 05/26/24 Physician Notified Time: 14:41 Physician: Mauricio Mcdonald Order Received: Yes - Notification Comment Comment: reactive, nst, no cervical change in 2 hours, pt discharged home with s/s of labor and when to return, has appt in the office tomorrow, Maternal Triage Index - Maternal Triage Index Presenting for scheduled procedure w/no complaint: No - Stat/Priority 1 Stat Priority 1: No - Urgent/Priority 2 Urgent Priority 2: No - Prompt/Priority 3 Prompt Priority 3: Yes Criteria Met for Priority 3: pt presents to triage with ctx's getting more intense Disposition - Disposition OB Disposition: Triage, Discharge to home, Written follow up instructions reviewed Discharge Date: 05/26/24 Discharge Time: 15:36 I agree with the RN Medical Screening Exam: Yes Physician's MSE Comment: I have neither seen nor examined the patient. Case reviewed; plan agreed upon as documented in EMR&OBIX.: Yes Diagnosis: RELATED CONDITIONS, UNSPECIFIED, THIRD TRIMESTER
== END 2024-05-26 15:36 | disposition home or self-care (01) ==
LOC: FBPOP 13:00
PROVIDERS: ATTEND Obstetrics & Gynecology
DX: O26.93 Pregnancy related conditions, unspecified, third trimester (principal); Z3A.38 38 weeks gestation of pregnancy; Z88.0 Allergy status to penicillin
CPT/HCPCS: 59025; G0463; 99213

== ENCOUNTER 2024-05-27 21:42 | Inpatient (IN) | payer OTHER ==
[2024-05-27] MEDS ORDERED: CARBOPROST TROMETHAMINE 250 MCG/ML 1 ML AMP IM PRN (22:54)
[2024-05-27] MEDS ORDERED: TERBUTALINE 1 MG/ML VIAL SQ PRN (22:54)
[2024-05-27] MEDS ORDERED: miSOPROStoL 200 MCG TAB RECTAL PRN (22:54)
[2024-05-27] MEDS ORDERED: OXYTOCIN 10 UNIT/ML 1 ML VIAL IM PRN (22:54)
[2024-05-27] MEDS ORDERED: TRANEXAMIC 1,000 MG/100ML-NACL 1,000 MG in EMPTY BAG 1 BAG IV PRN (22:54)
[2024-05-27] MEDS ORDERED: miSOPROStoL 200 MCG TAB PO PRN (22:54)
[2024-05-27] MEDS ORDERED: METHYLERGONOVINE 0.2 MG/ML 1 ML AMP IM PRN (22:54)
[2024-05-27 23:26] LABS: Basophils % (A) 0 %; Eosinophils # (A) 0.1 k/uL (0-0.7); Eosinophils % (A) 1 %; HCT 34.3 % (34.0-46.0); HGB 10.7 gm/dL (11.4-16.0); Hypochromasia Slight; Lymphocytes # (A) 1.2 k/uL (1.0-4.8); Lymphocytes % (A) 11 %; MCH 24.7 pg (25.0-35.0); MCHC 31.2 g/dL (31.0-37.0); MCV 79.1 fL (80.0-100.0); Mean Platelet Volume 8.8; Monocytes # (A) 0.6 k/uL (0-1.0); Monocytes % (A) 5 %; Neutrophils # (A) 8.9 k/uL (1.3-7.7); Neutrophils % (A) 81 %; Platelet Count 196 k/uL (150-450); RBC 4.34 m/uL (3.80-5.40); RDW 15.2 % (11.5-15.5)
[2024-05-27] MEDS: LACTATED RINGERS 1,000 ML IV SCH (23:30)
[2024-05-27] MEDS ORDERED: fentaNYL (PF) 50 MCG/ML 5 ML AMP ONE (23:44)
[2024-05-27] MEDS ORDERED: ROPIVACAINE 5 MG/ML 30 ML VIAL ONE (23:44)
[2024-05-27] MEDS ORDERED: SODIUM CHLORIDE 0.9% 250 ML BAG ONE (23:44)
--- NOTE | 2024-05-28 02:00 | P.HPOB ---
History of Present Illness H&P Date: 05/28/24 Chief Complaint: labor 23 year old presents at 39 weeks 1 day in labor. Her cervix was 3/70/-2 and she is chula every 2-3 minutes. heart tones category 1. Review of Systems All systems: negative Constitutional: Denies chills, Denies fever Eyes: denies blurred vision, denies pain Ears, nose, mouth and throat: Denies headache, Denies sore throat Cardiovascular: Denies chest pain, Denies shortness of breath Respiratory: Denies cough Gastrointestinal: Denies abdominal pain, Denies diarrhea, Denies nausea, Denies vomiting Genitourinary: Denies dysuria, Denies hematuria Musculoskeletal: Denies myalgias Integumentary: Denies pruritus, Denies rash Neurological: Denies numbness, Denies weakness Psychiatric: Denies anxiety, Denies depression Endocrine: Denies fatigue, Denies weight change Past Medical History Past Medical History: No Reported History Additional Past Medical History / Comment(s): Obstetric history: She's had 2 previous spontaneous miscarriages and one vaginal delivery. This is her fourth and she's had care. Blood type is O+, antibodies negative, rubella immune, hepatitis B negative, HIV nonreactive RPR nonreactive and GBS negative. History of Any Multi-Drug Resistant Organisms: None Reported Past Surgical History: No Surgical Hx Reported Additional Past Surgical History / Comment(s): D&C in August 2020 Past Anesthesia/Blood Transfusion Reactions: No Reported Reaction Past Psychological History: No Psychological Hx Reported Smoking Status: Never smoker Past Alcohol Use History: None Reported Past Drug Use History: None Reported - Past Family History Mother Family Medical History: Asthma Father History Unknown: Yes Medications and Allergies Home Medications Medication Instructions Recorded Confirmed Type Vit No.179/Iron/Folic 1 each PO 12/24/21 History [ Tablet] metroNIDAZOLE 0.75% CREAM 04/26/24 History [Metrocream 0.75%] Allergies Allergy/AdvReac Type Severity Reaction Status Date / Time Penicillins Allergy Family Verified 05/27/24 21:45 history Exam Osteopathic Statement: *. No significant issues noted on an osteopathic structural exam other than those noted in the History and Physical/Consult. Vital Signs Temp Pulse Resp BP Pulse Ox 05/27/24 23:16 98.3 F 96 16 122/69 97 05/27/24 22:53 98.3 F 96 16 122/69 97 Intake and Output 05/27/24 05/27/24 05/28/24 14:59 22:59 06:59 Other: Weight 63.957 kg 63.957 kg Heart: Regular rate and rhythm Lungs: Clear to auscultation bilaterally Abdomen: Soft, nontender Extremities: Negative Homans sign Results Result Diagrams: 05/27/24 23:12 Abnormal Lab Results - Last 24 Hours (Table) 05/27/24 Range/Units 23:12 WBC 11.0 H (3.8-10.6) k/uL Hgb 10.7 L (11.4-16.0) gm/dL MCV 79.1 L (80.0-100.0) fL MCH 24.7 L (25.0-35.0) pg Neutrophils # 8.9 H (1.3-7.7) k/uL Assessment and Plan (1) Normal labor Current Visit: No Status: Acute Code(s): O80 - ENCOUNTER FOR FULL-TERM UNCOMPLICATED DELIVERY; Z37.9 - OUTCOME OF DELIVERY, UNSPECIFIED SNOMED Code(s): 67598058 (2) 39 weeks gestation of Current Visit: Yes Status: Acute Code(s): Z3A.39 - 39 WEEKS GESTATION OF CO MATHEUSCY SNOMED Code(s): 45157811 Plan: 1. admit to [facility] 2. anticipate normal vaginal delivery
[2024-05-28] MEDS: LIDOCAINE 0.5% (PF) 5 MG/ML (50 ML SDV) SQ PRN (04:08)
[2024-05-28] MEDS: OXYTOCIN 30 UNITS/500 ML NS 30 UNIT in SALINE 1 500ML.BAG IV SCH (04:11)
[2024-05-28] MEDS ORDERED: LANOLIN CREAM 1 GM TUBE TOPICAL PRN (04:20)
[2024-05-28] MEDS ORDERED: ZOLPIDEM 5 MG TAB PO PRN (04:20)
[2024-05-28] MEDS ORDERED: SIMETHICONE 80 MG CHEWABLE PO PRN (04:20)
[2024-05-28] MEDS ORDERED: diphenhydrAMINE 50 MG/ML 1 ML VIAL IVP PRN ×2 (04:20)
[2024-05-28] MEDS ORDERED: HYDROCORTISONE 2.5% RECTAL CREAM 30 GM TUBE RECTAL PRN (04:20)
[2024-05-28] MEDS ORDERED: diphenhydrAMINE 25 MG CAP PO PRN (04:20)
[2024-05-28] MEDS ORDERED: diphenhydrAMINE 50 MG CAP PO PRN (04:20)
--- NOTE | 2024-05-28 04:23 | P.PROBDLV ---
Vaginal Delivery Note - . Vaginal Delivery Note: 23 year old presents at 39 weeks 1 day in labor. Her cervix was 3/70/-2 and she is chula every 2-3 minutes. heart tones category 1. Presenting into labor and delivery and when she was uncomfortable she did get an epidural. When she was about 6 cm dilated her water broke on its own at 1:05 AM, clear fluid noted. (Completed 4 AM. She pushed, delivered a viable male infant over intact perineum under epidural anesthesia at 4:06 AM. Head delivered OA, anterior shoulder delivered gentle downward guidance of the posterior shoulder and rest of body. Nose and mouth bulb suction, clear clamped and cut, placed on mother's abdomen. Apgars 9, 9, 7 pounds 12.9 ounces. Placenta delivered spontaneously, intact three-vessel cord at 4:11 AM. Vagina, cervix, perineum inspected. First-degree midline laceration was repaired with 3-0 Vicryl. Estimated blood loss 100 mL. Mother and baby in stable condition.
[2024-05-28] MEDS: IBUPROFEN 800 MG TAB PO SCH (04:50)
[2024-05-28] MEDS: BENZOCAINE/MENTHOL SPRAY 1 GM/SPRAY AEROSOL TOPICAL PRN (04:52)
[2024-05-28] MEDS: SENNOSIDES-DOCUSATE SODIUM 1 EACH TAB PO SCH (08:22)
[2024-05-28] MEDS: ACETAMINOPHEN TAB 500 MG TAB PO SCH (08:23)
[2024-05-28 23:55] VITALS: RESP 16
[2024-05-29 06:07] LABS: Basophils % (A) 0 %; Eosinophils # (A) 0.2 k/uL (0-0.7); Eosinophils % (A) 2 %; HCT 29.7 % (34.0-46.0); HGB 9.5 gm/dL (11.4-16.0); Hypochromasia Marked; Lymphocytes # (A) 1.5 k/uL (1.0-4.8); Lymphocytes % (A) 13 %; MCH 26.1 pg (25.0-35.0); MCHC 32.1 g/dL (31.0-37.0); MCV 81.3 fL (80.0-100.0); Mean Platelet Volume 9.2; Monocytes # (A) 0.6 k/uL (0-1.0); Monocytes % (A) 6 %; Neutrophils # (A) 8.8 k/uL (1.3-7.7); Neutrophils % (A) 77 %; Platelet Count 202 k/uL (150-450); RBC 3.65 m/uL (3.80-5.40); RDW 15.3 % (11.5-15.5); WBC 11.4 k/uL (3.8-10.6)
[2024-05-29 08:41] VITALS: BP 100/67; PULSE 82; TEMP 97.9
--- NOTE | 2024-05-29 09:07 | P.DS ---
Providers Date of admission: 05/27/24 22:54 Expected date of discharge: 05/29/24 Attending physician: Mauricio Mcdonald Primary care physician: Stated None - Discharge Diagnosis(es) (1) Normal spontaneous vaginal delivery Current Visit: Yes Status: Acute Hospital Course: The patient is a 23-year-old 4 para 1-0-2-1 admitted at 39 and 1 days by good dating parameters in active labor. Her has been uncomplicated and group B strep status is negative. On labor and delivery, all signs are reassuring with a category 1 heart rate tracing. She had an epidural catheter placed for analgesia and had spontaneous rupture of membranes for clear fluid. She progressed to complete and then pushed to a normal spontaneous vaginal delivery of a viable 7 pound 13 ounce baby boy with Apgars of 9 at 1 minute and 9 at 5 minutes. Her course was unremarkable with vital signs remaining stable and her temperature was afebrile throughout. She was deemed stable for discharge on day #1 and was discharged home to follow-up in the office in 6 weeks time routinely. Discharge instructions included calling for any significantly increased bleeding or foul-smelling lochia, significantly increased fever or abdominal pain, perineal complaints, breast complaints, or anything else that concerned her. She was additionally instructed to have nothing in the vagina for at least 6 weeks time to include intercourse. She understood her instructions and agrees to follow-up as noted above. Discharge medications included continued vitamins as she has opted to breast-feed. She was otherwise to use [id number] analgesic pain medications as needed. Maternal blood type is Rh+ and rubella status is immune. Procedures: #1. Epidural analgesia #2. Normal spontaneous vaginal delivery #3. Repair of perineal laceration Patient Condition at Discharge: Stable Plan - Discharge Summary New Discharge Prescriptions: No Action metroNIDAZOLE 0.75% CREAM [Metrocream 0.75%] Vit No.179/Iron/Folic [ Tablet] 1 each PO Discharge Medication List Vit No.179/Iron/Folic [ Tablet] 1 each PO 12/24/21 [History] metroNIDAZOLE 0.75% CREAM [Metrocream 0.75%] 04/26/24 [History] Follow up Appointment(s)/Referral(s): Mauricio Mcdonald MD [STAFF PHYSICIAN] - 03/11/25 11:15 am Discharge Disposition: HOME SELF-CARE
== END 2024-05-29 13:34 | disposition home or self-care (01) | DRG 560 ==
LOC: FBPOP 21:42 → 4FBP 22:54
PROVIDERS: ADMIT Obstetrics & Gynecology; ATTEND Obstetrics & Gynecology
PROC: 10E0XZZ Delivery of Products of Conception, External Approach (ICD-10-PCS; principal; 2024-05-27)
PROC: 0HQ9XZZ Repair Perineum Skin, External Approach (ICD-10-PCS; principal; 2024-05-27)
DX: O70.0 First degree perineal laceration during delivery (principal); Z37.0 Single live birth; Z3A.39 39 weeks gestation of pregnancy; Z79.899 Other long term (current) drug therapy; Z88.0 Allergy status to penicillin
CPT/HCPCS: 59025; 85025; 86850; 86900; 86901; 99213

== ENCOUNTER 2024-07-10 18:49 | Emergency (ER) | payer OTHER ==
--- NOTE | 2024-07-10 20:16 | ED ---
Skin/Abscess/FB HPI - General Chief complaint: Skin/Abscess/Foreign Body Stated complaint: breast pain Time Seen by Provider: 07/10/24 19:45 Source: patient, RN notes reviewed Mode of arrival: ambulatory Limitations: no limitations - History of Present Illness Initial comments: This is a 23-year-old female who presents to the emergency department for left breast pain. States that it started about a week ago and she started to develop fevers yesterday. She is breast-feeding and is . She had a vaginal delivery on 05/28/2024. She has never had this problem in the past. States that she is concerned about mastitis. States that her breast has felt warm, however she has not noticed any redness. While the majority of the pain is left-sided, states that she does have some discomfort on the right side as well. Also reports occasional nausea and headaches. Denies any coughing or congestion. - Related Data Home Medications Medication Instructions Recorded Confirmed Vit No.179/Iron/Folic 1 each PO 12/24/21 [ Tablet] metroNIDAZOLE 0.75% CREAM 04/26/24 [Metrocream 0.75%] Previous Rx's Medication Instructions Recorded Cephalexin [Keflex] 500 mg PO Q6HR 10 Days #40 cap 07/10/24 Ibuprofen [Motrin] 800 mg PO Q8H PRN #30 tab 07/10/24 Ondansetron Odt [Zofran Odt] 4 mg PO Q8HR PRN #15 tab 07/11/24 Allergies Allergy/AdvReac Type Severity Reaction Status Date / Time Penicillins Allergy Family Verified 07/10/24 19:44 history Review of Systems ROS Statement: Those systems with pertinent positive or pertinent negative responses have been documented in the HPI. ROS Other: All systems not noted in ROS Statement are negative. Past Medical History Past Medical History: No Reported History Additional Past Medical History / Comment(s): Obstetric history: She's had 2 previous spontaneous miscarriages and one vaginal delivery. This is her fourth and she's had care. Blood type is O+, antibodies negative, rubella immune, hepatitis B negative, HIV nonreactive RPR nonreactive and GBS negative. History of Any Multi-Drug Resistant Organisms: None Reported Past Surgical History: No Surgical Hx Reported Additional Past Surgical History / Comment(s): D&C in August 2020 Past Anesthesia/Blood Transfusion Reactions: No Reported Reaction Past Psychological History: No Psychological Hx Reported Smoking Status: Never smoker Past Alcohol Use History: None Reported Past Drug Use History: None Reported - Past Family History Mother Family Medical History: Asthma Father History Unknown: Yes General Exam Limitations: no limitations General appearance: alert, in no apparent distress Head exam: Present: atraumatic, normocephalic, normal inspection Respiratory exam: Present: normal lung sounds bilaterally. Absent: respiratory distress, wheezes, rales, rhonchi, stridor Cardiovascular Exam: Present: regular rate, normal rhythm Neurological exam: Present: alert, oriented X3, CN II-XII intact Psychiatric exam: Present: normal affect, normal mood Skin exam: Present: other (Left breast tenderness and warmth. No erythema, swelling, or palpable abscess) Course Vital Signs 07/10/24 07/10/24 07/10/24 19:41 21:05 22:21 Temperature 98.0 F 102.9 F H 102.5 F H Pulse Rate 122 H 116 H Respiratory 16 20 Rate Blood Pressure 122/82 123/80 O2 Sat by Pulse 98 100 Oximetry 07/10/24 07/11/24 22:51 01:00 Temperature 100.3 F H 97.9 F Pulse Rate 65 Respiratory 16 Rate Blood Pressure 99/60 O2 Sat by Pulse 97 Oximetry Medical Decision Making - Medical Decision Making This is a 23 year old female who presents to the emergency department for left breast pain. Was pt. sent in by a medical professional or institution? @ -No Did you speak to anyone other than the patient for history? @ -No Did you review nursing and triage notes? @ -Yes, and I agree, it is accurate with regards to the patient's symptoms. Were old charts reviewed? @ -No Differential Diagnosis? @ -Mastitis, fibroadenoma, tumor, abscess, this is not meant to be an all- inclusive list. EKG interpreted by me (3pts min.)? @ -Not obtained X-rays interpreted by me (1pt min.)? @ -Not obtained CT interpreted by me (1pt min.)? @ -Not obtained U/S interpreted by me (1pt. min.)? @ -Ultrasound of the bilateral breasts obtained. My interpretation identifies no abscess formation. What testing was considered but not performed? (CT, X-rays, U/S, labs)? Why? @ -Cepheid 4-plex swab, however patient declined. What meds were considered but not given? Why? @ -None Did you discuss the management of the patient with other professionals? @ -No Did you reconcile home meds? @ -No Was smoking cessation discussed for >3mins.? @ -No Was critical care preformed (if so, how long)? @ -No Were there social determinants of health that impacted care today? How? (Homelessness, low income, unemployed, alcoholism, drug addiction, transportation, low edu. Level, literacy, decrease access to med. care, long-term, rehab)? @ -No Was there de-escalation of care discussed even if they declined? (Discuss DNR or withdrawal of care, Hospice)? @ -No What co-morbidities impacted this encounter? (DM, HTN, Smoking, COPD, CAD, Cancer, CVA, Hep., AIDS, mental health diagnosis, sleep apnea, morbid obesity)? @ -None Was patient admitted / discharged? @ -Discharged. Lab work demonstrates leukocytosis with a white blood cell count of 11.8. CRP elevated at 4.6. She did become febrile in the emergency department with a temperature of 102.9 F. Ultrasound of the bilateral breasts demonstrates prominent ducts in both breasts posterior to the nipple and 2 small thin-walled cysts to the left breast. Her breasts were tender on exam, however there was no louisa erythema or firmness. I did advise additional testing to look for other sources of infection given her systemic symptoms of the headache and nausea. She declined Cepheid 4 Plex testing and was unable to provide a urine sample. I did also offer admission given that she was febrile and fairly uncomfortable, however she declined. She was given 1g of ceftriaxone in the emergency department and a prescription for Keflex was provided for possible mastitis. Ibuprofen and Zofran prescribed for further management of her discomfort and nausea. Advised continuing with ibuprofen and Tylenol for the fever and discomfort. Also advised she continue breast-feeding and pumping. She will otherwise follow-up with her ONCOLOGY RESEARCH RN and PCP. Patient discharged home in stable condition. Case discussed with ED attending Dr. Francois. Return precautions reviewed in depth, the patient is instructed to return to the emergency department with any new, worsening, or concerning symptoms. Patient verbalized understanding. Undiagnosed new problem with uncertain prognosis? @ -None Drug Therapy requiring intensive monitoring for toxicity (Heparin, Nitro, Insulin, Cardizem)? @ -None Were any procedures done? @ -None Diagnosis/symptom? @ -Mastitis Acute, or Chronic, or Acute on Chronic? @ -Acute Uncomplicated (without systemic symptoms) or Complicated (systemic symptoms)? @ -Complicated Side effects of treatment? @ -None Exacerbation, Progression, or Severe Exacerbation] @ -Not applicable Poses a threat to life or bodily function? @ -Unlikely - Lab Data Result diagrams: 07/10/24 21:04 07/10/24 21:04 Lab Results 07/10/24 07/10/24 07/10/24 Range/Units 21: 21: 21:04 WBC 11.8 H (3.8-10.6) k/uL RBC 5.31 (3.80-5.40) m/uL Hgb 13.1 D (11.4-16.0) gm/dL Hct 42.4 (34.0-46.0) % MCV 80.0 (80.0-100.0) fL MCH 24.8 L (25.0-35.0) pg MCHC 31.0 (31.0-37.0) g/dL RDW 17.4 H (11.5-15.5) % Plt Count 182 (150-450) k/uL MPV 8.7 Neutrophils % 88 % Lymphocytes % 6 % Monocytes % 3 % Eosinophils % 1 % Basophils % 0 % Neutrophils # 10.4 H (1.3-7.7) k/uL Lymphocytes # 0.7 L (1.0-4.8) k/uL Monocytes # 0.4 (0-1.0) k/uL Eosinophils # 0.2 (0-0.7) k/uL Basophils # 0.0 (0-0.2) k/uL Hypochromasia Slight Anisocytosis Slight Microcytosis Slight Sodium 143 (137-145) mmol/L Potassium 3.7 (3.5-5.1) mmol/L Chloride 103 (98-107) mmol/L Carbon Dioxide 28 (22-30) mmol/L Anion Gap 12 mmol/L BUN 13 (7-17) mg/dL Creatinine 0.95 (0.52-1.04) mg/dL Est GFR (CKD-EPI)AfAm >90 (>60 ml/min/1.73 sqM) Est GFR (CKD-EPI)NonAf 85 (>60 ml/min/1.73 sqM) Glucose 116 H (74-99) mg/dL Plasma Lactic Acid Johnnie 1.0 (0.7-2.0) mmol/L Calcium 9.5 (8.4-10.2) mg/dL Total Bilirubin 1.4 H (0.2-1.3) mg/dL AST 18 (14-36) U/L ALT 13 (4-34) U/L Alkaline Phosphatase 94 (38-126) U/L C-Reactive Protein 4.6 H (<1.0) mg/dL Total Protein 7.6 (6.3-8.2) g/dL Albumin 4.6 (3.5-5.0) g/dL - Radiology Data Radiology results: report reviewed, image reviewed Disposition Clinical Impression: Mastitis Disposition: HOME SELF-CARE Instructions (If sedation given, give patient instructions): Mastitis (ED) Additional Instructions: Return to the emergency department with any new, worsening, or concerning symptoms. Take the antibiotic as prescribed for 10 days. Alternate with ibuprofen and Tylenol as needed for fevers and discomfort. Take the Zofran up to every 8 hours as needed for nausea and vomiting. Make sure you continue breast-feeding during this time. Follow-up with your ONCOLOGY RESEARCH RN and primary care pr ovider. Prescriptions: Cephalexin [Keflex] 500 mg PO Q6HR 10 Days #40 cap Ibuprofen [Motrin] 800 mg PO Q8H PRN #30 tab PRN Reason: Pain Ondansetron Odt [Zofran Odt] 4 mg PO Q8HR PRN #15 tab PRN Reason: Nausea And Vomiting Is patient prescribed a controlled substance at d/c from ED?: No Referrals: None,Stated [Primary Care Provider] - 1-2 days Time of Disposition: 12:50
[2024-07-10] MEDS: ONDANSETRON 4 MG/2 ML VIAL IVP STA (21:11)
[2024-07-10] MEDS: SODIUM CHLORIDE 0.9% 1,000 ML IV ONE ×2 (21:11→22:43)
[2024-07-10] MEDS: IBUPROFEN 800 MG TAB PO STA (21:14)
[2024-07-10] MEDS: ACETAMINOPHEN TAB 500 MG TAB PO STA (21:15)
[2024-07-10 21:16] LABS: Anisocytosis Slight; Basophils % (A) 0 %; Eosinophils # (A) 0.2 k/uL (0-0.7); Eosinophils % (A) 1 %; HCT 42.4 % (34.0-46.0); Hypochromasia Slight; Lymphocytes # (A) 0.7 k/uL (1.0-4.8); Lymphocytes % (A) 6 %; MCH 24.8 pg (25.0-35.0); Mean Platelet Volume 8.7; Microcytosis Slight; Monocytes # (A) 0.4 k/uL (0-1.0); Monocytes % (A) 3 %; Neutrophils # (A) 10.4 k/uL (1.3-7.7); Neutrophils % (A) 88 %; Platelet Count 182 k/uL (150-450); RBC 5.31 m/uL (3.80-5.40); RDW 17.4 % (11.5-15.5); WBC 11.8 k/uL (3.8-10.6)
[2024-07-10 21:30] LABS: ALT 13 U/L (4-34); AST 18 U/L (14-36); African American GFR (CKD) >90 (>60 ml/min/1.73 sqM); Albumin 4.6 g/dL (3.5-5.0); Alkaline Phosphatase 94 U/L (38-126); Anion Gap 12 mmol/L; Blood Urea Nitrogen 13 mg/dL (7-17); C Reactive Protein 4.6 mg/dL (<1.0); Calcium 9.5 mg/dL (8.4-10.2); Carbon Dioxide 28 mmol/L (22-30); Chloride 103 mmol/L (98-107); Glucose 116 mg/dL (74-99); Non-African American GFR(CKD) 85 (>60 ml/min/1.73 sqM); Potassium 3.7 mmol/L (3.5-5.1); Sodium 143 mmol/L (137-145); Total Bilirubin 1.4 mg/dL (0.2-1.3); Total Protein 7.6 g/dL (6.3-8.2)
[2024-07-10 22:14] LABS: HGB 13.1 gm/dL (11.4-16.0)
[2024-07-10] MEDS: MORPHINE SULFATE 4 MG/ML SYRINGE IVP STA (22:55)
[2024-07-10] MEDS: METOCLOPRAMIDE 5 MG/ML 2 ML VIAL IVP STA (22:55)
[2024-07-11] MEDS: KETOROLAC 15 MG/ML 1 ML VIAL IVP STA (00:33)
[2024-07-11] MEDS: cefTRIAXone IN SWFI 1,000 MG/10 ML SYRINGE IVP STA (00:34)
[2024-07-11] MEDS: diphenhydrAMINE 50 MG/ML 1 ML VIAL IVP STA (00:34)
[2024-07-11 01:02] VITALS: BP 99/60; PULSE 65; RESP 16; TEMP 97.9
--- NOTE | 2024-07-11 10:54 | USB ---
Reason for Exam: Clinical finding. Findings: The whole breast of both breasts was scanned. A complete US of all four quadrants of the breast and retro-areolar region were reviewed. Dilated ducts seen within bilateral retroareolar region. In the left breast there are two thin-walled cystic areas seen: 1 at 1 o clock measuring 3 x 3mm 1 at 10 o clock measuring 7 x 7mm. Overall Assessment: Benign, BI-RAD 2 Management: Screening Mammogram of both breasts at age 39. Prominent ducts are identified. There are 2 small thin-walled cysts in the left breast incidentally noted. No thick-walled fluid collections to suggest galactocele or abscess. Manage patient's symptoms clinically. A clinical breast exam by your physician is recommended on an annual basis and results should be correlated with mammographic findings. This exam should not preclude additional follow-up of suspicious palpable abnormalities. Results were given to the patient verbally at the time of exam. [facility], , 07/10/2024 10:00 PM. Electronically signed and approved by: Fer Domingo M.D.
== END 2024-07-11 01:02 | disposition home or self-care (01) ==
LOC: EC 18:49
DX: N61.0 Mastitis without abscess (principal); Z88.0 Allergy status to penicillin
CPT/HCPCS: 36415; 80053; 83605; 85025; 86140; 76641; 99284; 96374; 96375 ×4; 96361 ×3; J2765; J2405

== ENCOUNTER 2024-09-05 16:05 | Emergency (ER) | payer OTHER ==
--- NOTE | 2024-09-05 17:36 | ED ---
General Adult HPI - General Chief complaint: Skin/Abscess/Foreign Body Stated complaint: mastitis Time Seen by Provider: 09/05/24 17:06 Source: patient, RN notes reviewed Mode of arrival: ambulatory Limitations: no limitations - History of Present Illness Initial comments: 23-year-old female presents to the emergency department for evaluation of right breast erythema and pain. Patient states that this started last night. She reports that it is progressed into the afternoon today. She reports fever earlier today. Also notes flulike symptoms. She states that this is consistent with a history of mastitis 2 months ago. She states that this was the left breast at that time. 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 She also reports taking leftover antibiotic earlier today. - Related Data Home Medications Medication Instructions Recorded Confirmed Vit No.179/Iron/Folic 1 each PO 12/24/21 [ Tablet] metroNIDAZOLE 0.75% CREAM 04/26/24 [Metrocream 0.75%] Previous Rx's Medication Instructions Recorded Cephalexin [Keflex] 500 mg PO Q6HR 10 Days #40 cap 07/10/24 Ibuprofen [Motrin] 800 mg PO Q8H PRN #30 tab 07/10/24 Ondansetron Odt [Zofran Odt] 4 mg PO Q8HR PRN #15 tab 07/11/24 Dicloxacillin [Dynapen] 500 mg PO Q6H #40 capsule 09/05/24 Allergies Allergy/AdvReac Type Severity Reaction Status Date / Time Penicillins Allergy Family Verified 09/05/24 17:01 history Review of Systems ROS Statement: Those systems with pertinent positive or pertinent negative responses have been documented in the HPI. ROS Other: All systems not noted in ROS Statement are negative. Past Medical History Past Medical History: No Reported History Additional Past Medical History / Comment(s): Obstetric history: She's had 2 previous spontaneous miscarriages and one vaginal delivery. This is her fourth and she's had care. Blood type is O+, antibodies negative, rubella immune, hepatitis B negative, HIV nonreactive RPR nonreactive and GBS negative. History of Any Multi-Drug Resistant Organisms: None Reported Past Surgical History: No Surgical Hx Reported Additional Past Surgical History / Comment(s): D&C in August 2020 Past Anesthesia/Blood Transfusion Reactions: No Reported Reaction Past Psychological History: No Psychological Hx Reported Smoking Status: Never smoker Past Alcohol Use History: None Reported Past Drug Use History: None Reported - Past Family History Mother Family Medical History: Asthma Father History Unknown: Yes General Exam Limitations: no limitations General appearance: alert, in no apparent distress Head exam: Present: atraumatic, normocephalic, normal inspection Eye exam: Present: normal appearance, PERRL, EOMI. Absent: scleral icterus, conjunctival injection, periorbital swelling Respiratory exam: Present: normal lung sounds bilaterally. Absent: respiratory distress, wheezes, rales, rhonchi, stridor Cardiovascular Exam: Present: regular rate, normal rhythm, normal heart sounds. Absent: systolic murmur, diastolic murmur, rubs, gallop, clicks Extremities exam: Present: normal inspection, full ROM, normal capillary refill. Absent: tenderness, pedal edema, joint swelling, calf tenderness Neurological exam: Present: alert, oriented X3 Psychiatric exam: Present: normal affect, normal mood Skin exam: Present: warm, dry, intact, erythema (Erythematous, indurated region at 11:00 on the left breast). Absent: normal color Course Vital Signs 09/05/24 09/05/24 09/05/24 16:59 18:55 20:03 Temperature 99 F 102.2 F H 98.9 F Pulse Rate 119 H 122 H Respiratory 18 16 Rate Blood Pressure 115/83 123/76 O2 Sat by Pulse 100 100 Oximetry 09/05/24 23:14 Temperature 97.9 F Pulse Rate 66 Respiratory 18 Rate Blood Pressure 103/64 O2 Sat by Pulse 100 Oximetry Medical Decision Making - Medical Decision Making Was pt. sent in by a medical professional or institution (, PA, HEAD ANIMAL KEEPER, urgent care, hospital, or prison...) When possible be specific @ -[No] Did you speak to anyone other than the patient for history (EMS, parent, family, police, friend...)? What history was obtained from this source @ -[No] Did you review nursing and triage notes (agree or disagree)? Why? @ -[I reviewed and agree with nursing and triage notes] Were old charts reviewed (outside hosp., previous admission, EMS record, old E KG, old radiological studies, urgent care reports/EKG's, prison records)? Report findings @ -[No old charts were reviewed] Differential Diagnosis (chest pain, altered mental status, abdominal pain women, abdominal pain men, vaginal bleeding, weakness, fever, dyspnea, syncope, headache, dizziness, GI bleed, back pain, seizure, CVA, palpatations, mental health, musculoskeletal)? @ -[Mastitis, breast abscess, cyst, cellulitis, clogged milk duct, this list is not all inclusive] EKG interpreted by me (3pts min.). @ -[none] X-rays interpreted by me (1pt min.). @ -[None done] CT interpreted by me (1pt min.). @ -[None done] U/S interpreted by me (1pt. min.). @ -[None done] What testing was considered but not performed or refused? (CT, X-rays, U/S, labs)? Why? @ -[None] What meds were considered but not given or refused? Why? @ -[None] Did you discuss the management of the patient with other professionals (professionals i.e. , PA, HEAD ANIMAL KEEPER, lab, RT, psych nurse, adoption social worker, exhibits coordinator, teacher, dog control officer, casey saw operator)? Give summary @ -[No] Was smoking cessation discussed for >3mins.? @ -[No] Was critical care preformed (if so, how long)? @ -[No] Were there social determinants of health that impacted care today? How? (Homelessness, low income, unemployed, alcoholism, drug addiction, transportation, low edu. Level, literacy, decrease access to med. care, nursing home, rehab)? @ -[No] Was there de-escalation of care discussed even if they declined (Discuss DNR or withdrawal of care, Hospice)? DNR status @ -[No] What co-morbidities impacted this encounter? (DM, HTN, Smoking, COPD, CAD, Cancer, CVA, ARF, Chemo, Hep., AIDS, mental health diagnosis, sleep apnea, morbid obesity)? @ -[None] Was patient admitted / discharged? Hospital course, mention meds given and route, prescriptions, significant lab abnormalities, going to OR and other pertinent info. @ -[Discharged.] Undiagnosed new problem with uncertain prognosis? @ -[No] Drug Therapy requiring intensive monitoring for toxicity (Heparin, Nitro, Insulin, Cardizem)? @ -[No] Were any procedures done? @ -[No] Diagnosis/symptom? @ -[Mastitis] Acute, or Chronic, or Acute on Chronic? @ -Acute Uncomplicated (without systemic symptoms) or Complicated (systemic symptoms)? @ -Completed Side effects of treatment? @ -[No] Exacerbation, Progression, or Severe Exacerbation? @ -[No] Poses a threat to life or bodily function? How? (Chest pain, [place], [place], pneumonia, PE, COPD, DKA, ARF, appy, cholecystitis, CVA, Diverticulitis, Homicidal, Suicidal, threat to staff... and all critical care pts) @ -[No] - Lab Data Result diagrams: 09/05/24 19:14 09/05/24 19:14 Lab Results 09/05/24 09/05/24 Range/Units 19:14 19:14 WBC 10.27 H (4.50-10.00) 10*3/uL RBC 4.74 (4.10-5.20) 10*6/uL Hgb 13.1 (12.0-15.0) g/dL Hct 38.9 (37.2-46.3) % MCV 82.1 (80.0-97.0) fL MCH 27.6 (27.0-32.0) pg MCHC 33.7 (32.0-37.0) g/dL Plt Count 173 (140-440) 10*3/uL MPV 10.6 (9.5-12.2) fL Immature Gran % (Auto) 0.6 % Neutrophils % 90.4 % Lymphocytes % 4.5 % Monocytes % 3.9 % Eosinophils % 0.4 % Basophils % 0.2 % Immature Gran # 0.06 H (0.00-0.04) 10*3/uL Neutrophils # 9.29 H (1.80-7.70) 10*3/uL Lymphocytes # 0.46 L (0.90-5.00) 10*3/uL Monocytes # 0.40 (0.20-1.00) 10*3/uL Eosinophils # 0.04 (0.04-0.35) 10*3/uL Basophils # 0.02 (0.00-0.10) 10*3/uL Sodium 132 L (137-145) mmol/L Potassium 3.3 L (3.5-5.1) mmol/L Chloride 102 (98-107) mmol/L Carbon Dioxide 25 (22-30) mmol/L Anion Gap 5 mmol/L BUN 14 (7-17) mg/dL Creatinine 0.77 (0.52-1.04) mg/dL Est GFR (CKD-EPI)AfAm >90 (>60 ml/min/1.73 sqM) Est GFR (CKD-EPI)NonAf >90 (>60 ml/min/1.73 sqM) Glucose 99 (74-99) mg/dL Calcium 9.4 (8.4-10.2) mg/dL Total Bilirubin 1.9 H (0.2-1.3) mg/dL AST 24 (14-36) U/L ALT 15 (4-34) U/L Alkaline Phosphatase 88 (38-126) U/L Total Protein 7.8 (6.3-8.2) g/dL Albumin 4.6 (3.5-5.0) g/dL Disposition Clinical Impression: Mastitis associated with Disposition: HOME SELF-CARE Condition: Stable Instructions (If sedation given, give patient instructions): Mastitis (ED) Additional Instructions: Please pepper picker antibiotics and take to completion. Follow-up with your doctor. Return to the emergency department for new or worsening symptoms. Prescriptions: Dicloxacillin [Dynapen] 500 mg PO Q6H #40 capsule Is patient prescribed a controlled substance at d/c from ED?: No Referrals: None,Stated [Primary Care Provider] - 1-2 days
[2024-09-05] MEDS: ACETAMINOPHEN TAB 500 MG TAB PO STA (18:36)
[2024-09-05] MEDS: ONDANSETRON ODT 4 MG TAB PO STA (18:37)
[2024-09-05] MEDS: KETOROLAC 15 MG/ML 1 ML VIAL IM STA (18:47)
[2024-09-05] MEDS: cefTRIAXone 250 MG VIAL IM STA (18:47)
[2024-09-05] MEDS: ONDANSETRON 4 MG ODT STARTER PACK 2 TAB BTL PO STA (18:47)
[2024-09-05] MEDS: KETOROLAC 15 MG/ML 1 ML VIAL IVP STA ×2 (19:01→22:25)
[2024-09-05] MEDS: MORPHINE SULFATE 4 MG/ML SYRINGE IVP STA (19:02)
[2024-09-05] MEDS: LACTATED RINGERS 1,000 ML IV ONE (19:07)
[2024-09-05] MEDS: ONDANSETRON 4 MG/2 ML VIAL IVP STA ×2 (19:13→22:26)
[2024-09-05 19:23] LABS: Basophils # (A) 0.02 10*3/uL (0.00-0.10); Basophils % (A) 0.2 %; Eosinophils # (A) 0.04 10*3/uL (0.04-0.35); Eosinophils % (A) 0.4 %; HCT 38.9 % (37.2-46.3); HGB 13.1 g/dL (12.0-15.0); Lymphocytes # (A) 0.46 10*3/uL (0.90-5.00); Lymphocytes % (A) 4.5 %; MCH 27.6 pg (27.0-32.0); MCHC 33.7 g/dL (32.0-37.0); MCV 82.1 fL (80.0-97.0); Mean Platelet Volume 10.6 fL (9.5-12.2); Monocytes % (A) 3.9 %; Neutrophils # (A) 9.29 10*3/uL (1.80-7.70); Neutrophils % (A) 90.4 %; Platelet Count 173 10*3/uL (140-440); RBC 4.74 10*6/uL (4.10-5.20); RDW 18.5 % (11.5-14.5); WBC 10.27 10*3/uL (4.50-10.00)
[2024-09-05 19:33] LABS: ALT 15 U/L (4-34); AST 24 U/L (14-36); African American GFR (CKD) >90 (>60 ml/min/1.73 sqM); Albumin 4.6 g/dL (3.5-5.0); Alkaline Phosphatase 88 U/L (38-126); Anion Gap 5 mmol/L; Blood Urea Nitrogen 14 mg/dL (7-17); Calcium 9.4 mg/dL (8.4-10.2); Carbon Dioxide 25 mmol/L (22-30); Chloride 102 mmol/L (98-107); Glucose 99 mg/dL (74-99); Non-African American GFR(CKD) >90 (>60 ml/min/1.73 sqM); Potassium 3.3 mmol/L (3.5-5.1); Sodium 132 mmol/L (137-145); Total Bilirubin 1.9 mg/dL (0.2-1.3); Total Protein 7.8 g/dL (6.3-8.2)
[2024-09-05] MEDS: POTASSIUM CHLORIDE ER 20 MEQ TAB.ER PO STA (21:44)
[2024-09-05 23:17] VITALS: BP 103/64; PULSE 66; RESP 18; TEMP 97.9
== END 2024-09-05 23:14 | disposition home or self-care (01) ==
LOC: EC 16:05
DX: O91.23 Nonpurulent mastitis associated with lactation (principal); Z88.0 Allergy status to penicillin
CPT/HCPCS: 36415; 80053; 85025; 76642; 99284; 96365; 96375; 96376; J2270; J2405; J0696; J1885